=== PATIENT | male | born 1965 | race Caucasian/White ===

== ENCOUNTER 2018-10-05 10:30 | Inpatient (IN) | payer OTHER ==
[~2018-10-05] VITALS: Ht 160 cm; Wt 73.3 kg
[2018-10-30] VITALS (35 sets, daily range): BP systolic 98–128; BP diastolic 59–81; PULSE 60–101; RESP 10–25; Ht 160 cm; Wt 73.3 kg
[2018-10-30] MEDS ORDERED: SOD CHLORIDE 0.9% 1,000 ML IV ONE (06:00)
[2018-10-30] MEDS ORDERED: AMPICILLIN/SULB 3 GM/NS (PMX) 100 ML IVPB SCH (06:00)
--- NOTE | 2018-10-30 07:35 | PREAC ---
Date/Time of Note Date/Time of Note DATE: 10/30/18 TIME: 07:33 Anesthesia Eval and Record Evaluation Time Pre-Procedure Interview DATE: 10/30/18 TIME: 07:33 Age 53 Sex male NPO: 8 hrs Preoperative diagnosis rectal cancer Planned procedure OPEN LOW ANTERIOR RESECTION Past Medical History Past Medical History: Includes Pulm: Smoking Hx (30 PY) Surgery & Anesthesia Issues No known issue Meds Anticoagulation: No Beta Kurtis within 24 hr: No Reason Beta Kurtis not given: Pt. not on B-Kurtis No Active Prescriptions or Reported Meds Current Medications Ampicillin Sodium/ Sulbactam Sodium 100 ml @ 200 mls/hr PRE-OP IVPB ; Start 10/30/18 at 06:00; Stop 10/30/18 at 15:00 Sodium Chloride 1,000 ml @ 75 mls/hr [id number] ONCE IV ; Start 10/30/18 at 06:00; Stop 10/30/18 at 19:19 Meds reviewed: Yes Allergies Coded Allergies: No Known Allergy (Unverified , 10/30/18) Allergies Reviewed: Yes Labs/Studies Labs Reviewed: Reviewed by anesthesiologist test: N/A Pre-procedure Exam Last vitals Vital Signs Date Temp Pulse Resp B/P (MAP) Pulse Ox O2 O2 Flow FiO2 Time Delivery Rate 10/30/18 98.2 67 18 100/64 100 Room Air 07:02 (76) Airway: Adequate mouth opening, Adequate thyromental dist Mallampati: Mallampati II Teeth: Normal Lung: Normal Heart: Normal ASA Physical Status ASA physical status: 2 Emergency: None Planned Anesthetic General/MAC: ETT Planned Pain Management Parenteral pain med Pre-operative Attestations Prior to commencing anesthesia and surgery, the patient was re-evaluated, there was verification of: *The patient's identity *The results of appropriate recent lab work and preoperative vital signs *The above evaluation not changing prior to induction *Anesthetic plan, risk benefits, alternative and complications discussed with patient/family; questions answered; patient/family understands, accepts and wishes to proceed. Lloyd Case M.D. Oct 30, 2018 07:35
[2018-10-30] MEDS ORDERED: ROCURONIUM 50 MG INJ ONE (07:41)
[2018-10-30] MEDS ORDERED: NEOSTIGMINE 3 MG/3 ML SYRINGE ONE (07:41)
[2018-10-30] MEDS ORDERED: PROPOFOL 20 ML ONE (07:41)
[2018-10-30] MEDS ORDERED: GLYCOPYRROLATE 0.4 MG INJ ONE (07:41)
[2018-10-30] MEDS ORDERED: CEFAZOLIN 1 GM INJ ONE (07:41)
[2018-10-30] MEDS ORDERED: ONDANSETRON 4 MG INJ ONE (07:45)
[2018-10-30] MEDS ORDERED: FENTAnyl 50 MCG/ML VIAL ONE (07:45)
[2018-10-30] MEDS ORDERED: DEXAMETHASONE 4 MG/ML 5 ML INJ ONE (07:45)
[2018-10-30] MEDS ORDERED: MIDAZOLAM 1 MG/ML 2 ML INJ ONE (07:45)
[2018-10-30] MEDS ORDERED: HYDROmorphONE 0.5 MG/0.5 ML SYG IV PRN ×2 (08:00)
[2018-10-30] MEDS ORDERED: OXYCODONE/ACETAMINOPHEN (5/325) TAB PO PRN ×2 (08:00)
[2018-10-30] MEDS ORDERED: MIDAZOLAM 1 MG/ML 2 ML INJ IV PRN (08:00)
[2018-10-30] MEDS ORDERED: NALOXONE (0.4 MG/ML) INJ IV PRN ×2 (08:00→13:00)
[2018-10-30] MEDS ORDERED: HYDROmorphONE 1 MG/5 ML IV SYRINGE IV PRN (08:00)
[2018-10-30] MEDS ORDERED: TRIMETHOBENZAMIDE 100 MG/ML VIAL IM PRN ×2 (08:00)
[2018-10-30] MEDS ORDERED: ONDANSETRON 4 MG INJ IV PRN (08:00)
[2018-10-30] MEDS ORDERED: FENTAnyl 50 MCG/ML VIAL IV PRN ×2 (08:00)
[2018-10-30] MEDS ORDERED: DIPHENHYDRAMINE 50 MG INJ IV PRN ×2 (08:00)
[2018-10-30] MEDS ORDERED: EPHEDrine SULFATE 50 MG/5 ML SYG IV PRN (08:00)
[2018-10-30] MEDS ORDERED: ALBUTEROL 0.083% (NEB) 2.5 MG/3 ML AMP HHN PRN (08:00)
[2018-10-30] MEDS ORDERED: IPRATROPIUM (NEB) 0.5 MG/2.5 ML AMP HHN PRN (08:00)
[2018-10-30] MEDS ORDERED: MEPERIDINE 25 MG INJ IV PRN (08:00)
[2018-10-30] MEDS ORDERED: hydrALAzine 20 MG INJ IV PRN (08:00)
[2018-10-30] MEDS ORDERED: NALBUPHINE HCL (10 MG/1 ML) INJ IV PRN (08:00)
[2018-10-30] MEDS ORDERED: LABETALOL HCL 20MG INJ IV PRN (08:00)
[2018-10-30] MEDS ORDERED: ROPIVACAINE 0.2% 20 ML VIAL ONE (08:11)
[2018-10-30] MEDS ORDERED: morphine SULFATE/PF (10 MG/10 ML) INJ ONE (08:11)
[2018-10-30] MEDS ORDERED: PIPER-TAZO 3.375 GM IV (PMX) 100 ML ONE (08:14)
[2018-10-30] MEDS ORDERED: ALBUMIN HUMAN 5% 250 ML ONE (09:08)
[2018-10-30] MEDS ORDERED: SUGAMMADEX SODIUM 200 MG/2 ML VIAL IV ONE (10:21)
[2018-10-30] MEDS: HYDROmorphONE 1 MG/5 ML IV SYRINGE IV PRN ×4 (11:44→12:58)
[2018-10-30] MEDS: FENTAnyl 50 MCG/ML VIAL IV PRN ×2 (12:09→12:18)
--- NOTE | 2018-10-30 12:44 | PAC ---
Date/Time of Note Date/Time of Note DATE: 10/30/18 TIME: 12:44 Post-Anesthesia Notes Post-Anesthesia Note Last documented vital signs Vital Signs Date Temp Pulse Resp B/P (MAP) Pulse Ox O2 O2 Flow FiO2 Time Delivery Rate 10/30/18 77 12 121/76 Room Air 11:59 (91) 10/30/18 96 11:55 10/30/18 98.0 11:07 10/30/18 2.0 10:55 Activity: WNL Respiratory function: WNL Cardiovascular function: WNL Mental status: Baseline Pain reasonably controlled: Yes Hydration appropriate: Yes Nausea/Vomiting absent: Yes Lloyd Case M.D. Oct 30, 2018 12:44
--- NOTE | 2018-10-30 13:25 | QN ---
Documentation Comment seen and examined LISA ENRIQUE MD Oct 30, 2018 13:25
--- NOTE | 2018-10-30 14:15 | HP ---
DATE OF ADMISSION: 10/30/2018 REASON FOR ADMISSION: Low anterior resection with rectal cancer operated by Dr. Banerjee. HISTORY OF PRESENT ILLNESS: This is a 53-year-old male of no past medical history who was diagnosed with rectal cancer followed by Dr. Banerjee as an outpatient. The patient on regular colonoscopy was found to have a rectal cancer which was 4 to 5 cm in diameter. The patient was followed by Dr. Verduzco, Dr. Banerjee and oncologist as an outpatient.Pt underwent neoadjuvant chemotherapy . Today pt is s/p Total proctocolectomy with coloanal anastomosis.2. Mobilization of splenic flexure.3. Diverting ileostomy by Dr Banerjee Currently, the patient is postop surgery and is in lot of pain, noted to have some oozing through the surgical site. and also has NG tube PAST MEDICAL HISTORY: None ALLERGIES: NONE. PAST SURGICAL HISTORY: None. SOCIAL HISTORY: He has a history of smoking. Denies any history of alcohol, any recreational drug use. Currently lives with his . FAMILY HISTORY: Noncontributory. REVIEW OF SYSTEMS: The patient complains of pain in the incision site. Denied any chest pain, any shortness of breath, any nausea, vomiting, hematemesis, any melena. PHYSICAL EXAMINATION: VITAL SIGNS: Currently, blood pressure 99/63, afebrile, heart rate is 76, respirations 17, saturating 97% on 2 liters. GENERAL: The patient is awake, alert; however is in mild to moderate distress secondary to pain. HEENT: The patient has NG tube in place. NECK: Supple. No JVD. HEART: Regular rate, rhythm. LUNGS: Clear to auscultate bilaterally. ABDOMEN: The patient has a ileostomy in place with stoma at the site, also has a vertical incision with mild oozing noted.no bowel sounds EXTREMITIES: No clubbing, cyanosis or edema. ASSESSMENT AND PLAN: . This is a 53-year-old male status 1. Total proctocolectomy with coloanal anastomosis.2. Mobilization of splenic flexure. 3. Diverting ileostomy. POD # 0 2. Postop pain control 3. History of smoking. 4. Rectal cancer.S/P neoadjuvant chemo PLAN: At this period of time, the patient is admitted to med/surg unit. The patient is kept n.p.o., started on IV fluids. The patient is also currently on Unasyn. The patient is on epidural per surgery. GI and DVT prophylaxis. The patient will be followed by surgery. We will continue to follow the patient with you. Rest of the treatment will depend on the patient's hospitalization course. Dictated By: LISA MEYERS/MAYO Conf#: [id number] DID#: [id number] CC: IGNACIO REYNA MD; NASIR BANERJEE MD;*EndCC* MTDD
--- NOTE | 2018-10-30 15:55 | SIPON ---
Date/Time of Note Date/Time of Note DATE: 10/30/18 TIME: 15:54 Operative Report Preoperative Diagnosis Low rectal cancer Postoperative Diagnosis Same Operation/Procedure Performed Low anterior resection and completion proctectomy Surgeon see signature line registrar assistant Dr Tobias Second assist: NELLY CEJA MD Anesthesia: general Estimated blood loss: 200 - 250 ml's Transfusion Required none Specimen Rectosigmoid specimen and additional distal margin Grafts/Implants none Complications none NASIR SÁNCHEZ MD Oct 30, 2018 15:55
[2018-10-30] MEDS: D5W-0.45 NACL + KCL 20 MEQ 1,000 ML IV SCH ×2 (16:52→23:28)
--- NOTE | 2018-10-30 17:52 | OPR ---
DATE OF OPERATION: PREOPERATIVE DIAGNOSIS: Low rectal cancer. POSTOPERATIVE DIAGNOSIS: Low rectal cancer. PROCEDURE: 1. Total proctocolectomy with coloanal anastomosis. 2. Mobilization of splenic flexure. 3. Diverting ileostomy. 4. Rigid sigmoidoscopy. INDICATIONS FOR PROCEDURE: The patient is a 53-year-old man presented with rectal bleeding and under went colonoscopy, found to have a low rectal cancer. He then underwent neoadjuvant chemotherapy, whi ch he recently completed and was referred for definitive surgical resection. DESCRIPTION OF PROCEDURE: The patient was brought to the operating theater and epidural catheter was placed. He was then placed under general anesthesia and placed into the lithotomy position. A Fole y catheter was placed and the abdomen was then shaved, prepped and draped in the usual sterile fashio n. A lower midline incision was made with 15 blade scalpel. Subcutaneous tissue was dissected with cautery down to the anterior rectus sheath. The linea alba was incised, and the abdomen was opened t hroughout the length of the skin incision. The Bookwalter retractor was placed and excellent exposur e was obtained. The left colon was then mobilized by taking down the left white line of Toldt. The distal rectum was inspected and the tumor was palpated. The entire rectal wall was thickened. A eileen table point of transection at the rectosigmoid junction was identified. The bowel was cleared of its mesentery and transected with the KELSEY stapler. A complete mesorectal excision of the rectum then to ok place with combination of cautery and use of the LigaSure device. The tumor appeared to be extend ed very, very low. The suitable point of transection very close to the anorectal junction was identi fied and the bowel was transected with the contour stapler. Intraoperative gross analysis revealed t hat the tumor was extending to the margin. Therefore, the remainder of the rectal stump was dissecte d and the complete extrication of the rectum took place using again the contour stapler. The specime n was sent for pathologic analysis. Preparations were then made for a coloanal anastomosis. The sta ple line of the descending colon was then transected. A #29 EEA anvil was placed into it using the p ursestring device and the bowel was secured around the anvil with the pursestring suture. Dr. Banerjee then went below and dilated the rectum with this dilators and the EEA stapler was inserted and anasto mosis was then created in the standard fashion. Both the proximal and distal donuts appeared intact. The distal donut was sent as the final distal margin. At this point, the abdominal cavity was irri gated. There was no evidence of bleeding. Lap, sponge and instrument counts were correct. A suitab le site for ileostomy placement was identified in the right lower quadrant. A small ellipse of skin was excised and subcutaneous tissue was dissected with cautery down to the anterior rectus sheath. T he sheath was then scored in cruciate fashion as well as the posterior sheath and peritoneum. A suit able portion of the terminal ileum was brought through the ileostomy site. The bowel was then transe cted using a KELSEY stapler. The distal portion was secured to the dermis with a 2-0 Prolene suture and the proximal portion was then brought up further through the ileostomy site. At this point, the abd omen was closed with #1 looped PDS sutures in running fashion. The wound was irrigated with Betadine , and skin was then reapproximated with 5-0 PDS sutures and Dermabond was applied. Attention was then directed to opening the ileostomy. The staple line was transected and the ileosto my was then matured with multiple 3-0 chromic sutures in standard fashion. An ileostomy appliance ba g was applied. The patient tolerated the procedure well. The total blood loss was approximately 250 mL. There were no complications and the patient was then transported in stable condition to the rec overy room. Dictated By: NASIR ABBOTT/MAYO Conf#: [id number] DID#: [id number]
[2018-10-30] MEDS: PIPER-TAZO 3.375 GM IV (PMX) 100 ML IVPB SCH ×2 (18:16→23:28)
[2018-10-30] MEDS: ONDANSETRON 4 MG INJ IV PRN (19:37)
[2018-10-30] MEDS: FENTAnyl 2MCG/ML-ROPIV 0.2% 100 ML BAG EPI SCH (20:16)
[2018-10-31] MEDS: PIPER-TAZO 3.375 GM IV (PMX) 100 ML IVPB SCH ×4 (05:14→23:16)
[2018-10-31] MEDS: FENTAnyl 2MCG/ML-ROPIV 0.2% 100 ML BAG EPI SCH ×3 (05:46→23:52)
[2018-10-31] MEDS: ONDANSETRON 4 MG INJ IV PRN ×2 (06:28→09:40)
[2018-10-31 07:29] VITALS: BP 97/55; PULSE 70; RESP 19
[2018-10-31] MEDS: D5W-0.45 NACL + KCL 20 MEQ 1,000 ML IV SCH ×2 (08:32→18:40)
[2018-10-31] MEDS ORDERED: MAGNESIUM SULFATE 2 GM/50 ML 50 ML IVPB ONE (11:30)
--- NOTE | 2018-10-31 11:54 | PN ---
Date/Time of Note Date/Time of Note DATE: 10/31/18 TIME: 11:50 Assessment/Plan VTE Prophylaxis Risk score (from Ns)>0 risk: 6 SCD applied (from Ns): Yes Pharmacological prophylaxis: NA/contraindicated Pharm contraindication: low risk/ambulating Lines[facility]Catheters [facility] Urinary Cath still in place: Yes Reason Cath still needed: urinary retention Assessment/Plan Hospital Course 53 Y/O with 1. Rectal cancer s/p Total proctocolectomy with coloanal anastomosis. 2. Mobilization of splenic flexure.3. Diverting ileostomy. POD #1 2 Post op pain 3 hx smoking Plan - NPO, iv fluids - cw NG > managed by surgery - Zofran/reglan prn nausea - epidural - fu Surgery recs - GI/DVT prophylaxsis - Replete Mg Result Diagram: 10/31/1843610/31/18436 Results 24hrs Laboratory Tests Test 10/31/18 04:37 White Blood Count 9.5 Red Blood Count 3.51 L Hemoglobin 12.4 L Hematocrit 36.9 L Mean Corpuscular Volume 105.1 H Mean Corpuscular Hemoglobin 35.3 H Mean Corpuscular Hemoglobin Concent 33.6 Red Cell Distribution Width 11.9 Platelet Count 120 L Mean Platelet Volume 10.9 H Immature Granulocytes % 0.400 Neutrophils % 87.8 H Lymphocytes % 5.4 L Monocytes % 6.3 Eosinophils % 0.0 Basophils % 0.1 Nucleated Red Blood Cells % 0.0 Immature Granulocytes # 0.040 H Neutrophils # 8.3 H Lymphocytes # 0.5 L Monocytes # 0.6 Eosinophils # 0.0 Basophils # 0.0 Nucleated Red Blood Cells # 0.0 Sodium Level 137 Potassium Level 5.0 Chloride Level 104 Carbon Dioxide Level 27 Anion Gap 6 Blood Urea Nitrogen 16 Creatinine 0.91 Est Glomerular Filtrat Rate mL/min > 60 Glucose Level 126 Calcium Level 8.1 L Phosphorus Level 2.8 Magnesium Level 1.6 L Total Bilirubin 0.8 Direct Bilirubin 0.00 Indirect Bilirubin 0.8 Aspartate Amino Transf (AST/SGOT) 22 Alanine Aminotransferase (ALT/SGPT) 21 Alkaline Phosphatase 28 L Total Protein 5.6 L Albumin 3.2 L Globulin 2.40 Albumin/Globulin Ratio 1.33 Subjective 24 Hr Interval Summary Free Text/Dictation Pain in abdomen +nausea NG drained 200 ml Exam/Review of Systems Exam Vitals Vital Signs Date Temp Pulse Resp B/P (MAP) Pulse Ox O2 O2 Flow FiO2 Time Delivery Rate 10/31/18 98.2 70 19 97/55 (69) 96 07:29 10/30/18 Nasal 2.0 16:30 Cannula Intake and Output 10/30/18 10/30/18 10/31/18 1515:00 23:00 07:00 IntakeIntake Total 2500 ml 550 ml 1550 ml OutputOutput Total 100 ml 600 ml 1400 ml BalanceBalance 2400 ml -50 ml 150 ml Exam GENERAL: The patient is awake, alert; however is in mild to moderate distress secondary to pain. HEENT: The patient has NG tube in place. NECK: Supple. No JVD. HEART: Regular rate, rhythm. LUNGS: Clear to auscultate bilaterally. ABDOMEN: The patient has a ileostomy in place with stoma at the site, also has a vertical incision with mild oozing notd covered with dressing, TTP EXTREMITIES: No clubbing, cyanosis or edema. Results Results 24hrs Laboratory Tests Test 10/31/18 04:37 White Blood Count 9.5 Red Blood Count 3.51 L Hemoglobin 12.4 L Hematocrit 36.9 L Mean Corpuscular Volume 105.1 H Mean Corpuscular Hemoglobin 35.3 H Mean Corpuscular Hemoglobin Concent 33.6 Red Cell Distribution Width 11.9 Platelet Count 120 L Mean Platelet Volume 10.9 H Immature Granulocytes % 0.400 Neutrophils % 87.8 H Lymphocytes % 5.4 L Monocytes % 6.3 Eosinophils % 0.0 Basophils % 0.1 Nucleated Red Blood Cells % 0.0 Immature Granulocytes # 0.040 H Neutrophils # 8.3 H Lymphocytes # 0.5 L Monocytes # 0.6 Eosinophils # 0.0 Basophils # 0.0 Nucleated Red Blood Cells # 0.0 Sodium Level 137 Potassium Level 5.0 Chloride Level 104 Carbon Dioxide Level 27 Anion Gap 6 Blood Urea Nitrogen 16 Creatinine 0.91 Est Glomerular Filtrat Rate mL/min > 60 Glucose Level 126 Calcium Level 8.1 L Phosphorus Level 2.8 Magnesium Level 1.6 L Total Bilirubin 0.8 Direct Bilirubin 0.00 Indirect Bilirubin 0.8 Aspartate Amino Transf (AST/SGOT) 22 Alanine Aminotransferase (ALT/SGPT) 21 Alkaline Phosphatase 28 L Total Protein 5.6 L Albumin 3.2 L Globulin 2.40 Albumin/Globulin Ratio 1.33 Medications Medication Current Medications Miscellaneous Information (* Miscellaneous Pharmacy Order) DURAMORPH: 3 MG EPIDU... GIVEN NEURAXIAL XX ; Start 10/30/18 at 08:00 Fentanyl/ Ropivacaine 100 ml CONT EPIDURAL EPI Last administered on 10/31/18at 05:46; Admin Dose 100 ML; Start 10/30/18 at 08:00; Stop 11/03/18 at 08:00 Naloxone HCl (Narcan) 0.2 mg Q2M PRN IV .RESP RATE; Start 10/30/18 at 13:00 Potassium Chloride/Dextrose/ Sod Cl 1,000 ml @ 125 mls/hr Q8H IV Last administered on 10/31/18at 08:32; Admin Dose 125 MLS/HR; Start 10/30/18 at 16:00 Piperacillin Sod/ Tazobactam Sod 100 ml @ 200 mls/hr Q6 IVPB Last administered on 10/31/18at 05:14; Admin Dose 200 MLS/HR; Start 10/30/18 at 18:00 Ondansetron HCl (Zofran Inj) 4 mg Q4H PRN IV NAUSEA AND/OR VOMITING Last administered on 10/31/18at 09:40; Admin Dose 4 MG; Start 10/31/18 at 09:30 Magnesium Sulfate 50 ml @ 25 mls/hr ONCE ONCE IVPB ; Start 10/31/18 at 11:30; Stop 10/31/18 at 13:29 LISA ENRIQUE MD Oct 31, 2018 11:54
[2018-10-31 12:00] VITALS: BP 100/64; PULSE 73; RESP 20
[2018-10-31] MEDS: CEPASTAT LOZENGE MT PRN (13:12)
[2018-10-31] MEDS: HYDROmorphONE 0.5 MG/0.5 ML SYG IV PRN (13:12)
[2018-10-31 14:20] VITALS: BP 101/62; PULSE 82; RESP 18
--- NOTE | 2018-10-31 15:52 | PN ---
DATE: 10/31/2018 Postop day #1 status post proctocolectomy and coloanal anastomosis. Diverting ileostomy. SUBJECTIVE: The patient has been complaining of too much nausea and actually vomited once at least t dave while the patient has NG tube in place and also the pain which is supposed to be controlled by e pidural has not been controlled enough, so I was asked to see the patient. OBJECTIVE: GENERAL: Awake, alert. VITAL SIGNS: Temperature 98.2, heart rate 72, respirations 19, blood pressure 97/55. HEAD AND NECK: Normal. NG tube is not functioning properly. I had to pull it out about 25 cm and t hen started functioning and a lot of gas and secretions was evacuated immediately. CHEST: Symmetrical expansion. HEART: Regular. LUNGS: Decreased breathing sound at bases. ABDOMEN: Before fixing the NG tube, epigastric area was quite distended. After that, the distention much decreased. Dressing is intact. Ileostomy bag is in place. Not much drainage. Bowel sounds h ypoactive. Sung catheter is in place. Lower extremity SCD in place. LABORATORY DATA: WBC 9500 with 87% segmented, hemoglobin 12.4, hematocrit 36.9, platelet count 120. Chemistry: Sodium, potassium, BUN, creatinine within normal limits. Magnesium 1.6. The medical se eugene is taking care of this matter. I's and O's: NG tube has drained about 300 mL from time of oper ation yesterday. Since 7 o'clock today morning. Sung catheter drained 1700 mL of urine. ASSESSMENT AND PLAN: This is a 53-year-old gentleman who has had cancer of the rectum, received neoa djuvant plus radiation. Yesterday he underwent proctocolectomy and anastomosis of the colon to anal canal. On a protective diet and diverting ileostomy. So far, patient is stable as was mentioned, th ere was problem with nausea and vomiting and excess pain in the epigastric area which appears to be d ue to malfunctioning NG tube which was adjusted by myself and the patient is feeling better now. PLAN: We will continue current care. Patient is receiving epidural for pain management and also we added for breakthrough pain, Dilaudid 0.5 mg IV q. 3 hours. Continue NG tube. Continue Sung cathet er. Continue epidural. We will follow along with other medical colleagues. Dictated By: LANCE MUNOZ MD PS/NTS Conf#: [id number] DID#: [id number] CC: NASIR SÁNCHEZ MD;*EndCC*
[2018-10-31 20:10] VITALS: BP 119/71; PULSE 95; RESP 18
[2018-11-01] MEDS ORDERED: LORAZEPAM 2 MG INJ IV ONE (00:30)
[2018-11-01 02:00] VITALS: BP 136/78; PULSE 84; RESP 18
[2018-11-01] MEDS: D5W-0.45 NACL + KCL 20 MEQ 1,000 ML IV SCH ×3 (03:59→12:39)
[2018-11-01] MEDS: PIPER-TAZO 3.375 GM IV (PMX) 100 ML IVPB SCH ×3 (06:22→17:08)
[2018-11-01 07:40] VITALS: BP 134/69; PULSE 91; RESP 19
[2018-11-01] MEDS: FENTAnyl 2MCG/ML-ROPIV 0.2% 100 ML BAG EPI SCH ×2 (08:39→17:08)
[2018-11-01] MEDS: HYDROmorphONE 0.5 MG/0.5 ML SYG IV PRN ×2 (08:49→21:48)
--- NOTE | 2018-11-01 12:48 | PN ---
Date/Time of Note Date/Time of Note DATE: 11/01/18 TIME: 12:44 Assessment/Plan VTE Prophylaxis Risk score (from Ns)>0 risk: 2 SCD applied (from Ns): Yes Pharmacological prophylaxis: NA/contraindicated Pharm contraindication: low risk/ambulating Lines/Catheters IV Catheter Type (from Nrsg): Peripheral IV Urinary Cath still in place: Yes Reason Cath still needed: urinary retention Assessment/Plan Hospital Course 53 Y/O with 1. Rectal cancer s/p Total proctocolectomy with coloanal anastomosis. 2. Mobilization of splenic flexure.3. Diverting ileostomy. POD #2 2 Post op pain 3 hx smoking Plan - ice chips per surgery - cw NG > managed by surgery - Zofran/reglan prn nausea - epidural/dilaudid prn pain - iv fluids with KCL at 125 cc/hr - fu Surgery recs - GI/DVT prophylaxsis - Replete Phos Result Diagram: 11/01/187 11/01/187 Results 24hrs Laboratory Tests Test 11/01/18 04:47 White Blood Count 8.6 Red Blood Count 3.57 L Hemoglobin 12.5 L Hematocrit 36.6 L Mean Corpuscular Volume 102.5 H Mean Corpuscular Hemoglobin 35.0 H Mean Corpuscular Hemoglobin Concent 34.2 Red Cell Distribution Width 11.9 Platelet Count 115 L Mean Platelet Volume 10.6 H Immature Granulocytes % 0.700 H Neutrophils % 87.5 H Lymphocytes % 6.0 L Monocytes % 5.7 Eosinophils % 0.0 Basophils % 0.1 Nucleated Red Blood Cells % 0.0 Immature Granulocytes # 0.060 H Neutrophils # 7.5 Lymphocytes # 0.5 L Monocytes # 0.5 Eosinophils # 0.0 Basophils # 0.0 Nucleated Red Blood Cells # 0.0 Sodium Level 138 Potassium Level 4.0 Chloride Level 108 Carbon Dioxide Level 25 Anion Gap 5 Blood Urea Nitrogen 10 Creatinine 0.77 Est Glomerular Filtrat Rate mL/min > 60 Glucose Level 127 Calcium Level 8.4 Phosphorus Level 1.6 #L Magnesium Level 2.3 Subjective 24 Hr Interval Summary Free Text/Dictation abdominal distension NG drainage Exam/Review of Systems Exam Vitals Vital Signs Date Temp Pulse Resp B/P (MAP) Pulse Ox O2 O2 Flow FiO2 Time Delivery Rate 11/01/18 98.9 91 19 134/69 95 07:40 (90) 10/31/18 Room Air 12:00 10/30/18 2.0 16:30 Intake and Output 10/31/18 10/31/18 11/01/18 1515:00 23:00 07:00 IntakeIntake Total 350 ml 1100 ml 1325 ml OutputOutput Total 600 ml 2500 ml BalanceBalance 350 ml 500 ml -1175 ml Exam Exam GENERAL: The patient is awake, alert; however is in mild to moderate distress secondary to pain. HEENT: The patient has NG tube in place. NECK: Supple. No JVD. HEART: Regular rate, rhythm. LUNGS: Clear to auscultate bilaterally. ABDOMEN: The patient has a ileostomy in place with stoma at the site, also has a vertical incision with mild oozing notd covered with dressing, TTP EXTREMITIES: No clubbing, cyanosis or edema. Results Results 24hrs Laboratory Tests Test 11/01/18 04:47 White Blood Count 8.6 Red Blood Count 3.57 L Hemoglobin 12.5 L Hematocrit 36.6 L Mean Corpuscular Volume 102.5 H Mean Corpuscular Hemoglobin 35.0 H Mean Corpuscular Hemoglobin Concent 34.2 Red Cell Distribution Width 11.9 Platelet Count 115 L Mean Platelet Volume 10.6 H Immature Granulocytes % 0.700 H Neutrophils % 87.5 H Lymphocytes % 6.0 L Monocytes % 5.7 Eosinophils % 0.0 Basophils % 0.1 Nucleated Red Blood Cells % 0.0 Immature Granulocytes # 0.060 H Neutrophils # 7.5 Lymphocytes # 0.5 L Monocytes # 0.5 Eosinophils # 0.0 Basophils # 0.0 Nucleated Red Blood Cells # 0.0 Sodium Level 138 Potassium Level 4.0 Chloride Level 108 Carbon Dioxide Level 25 Anion Gap 5 Blood Urea Nitrogen 10 Creatinine 0.77 Est Glomerular Filtrat Rate mL/min > 60 Glucose Level 127 Calcium Level 8.4 Phosphorus Level 1.6 #L Magnesium Level 2.3 Medications Medication Current Medications Miscellaneous Information (* Miscellaneous Pharmacy Order) DURAMORPH: 3 MG EPIDU... GIVEN NEURAXIAL XX ; Start 10/30/18 at 08:00 Fentanyl/ Ropivacaine 100 ml CONT EPIDURAL EPI Last administered on 11/01/18at 08:39; Admin Dose 100 ML; Start 10/30/18 at 08:00; Stop 11/03/18 at 08:00 Naloxone HCl (Narcan) 0.2 mg Q2M PRN IV .RESP RATE; Start 10/30/18 at 13:00 Potassium Chloride/Dextrose/ Sod Cl 1,000 ml @ 125 mls/hr Q8H IV Last administered on 11/01/18 12:39; Admin Dose 125 MLS/HR; Start 10/30/18 at 16:00 Piperacillin Sod/ Tazobactam Sod 100 ml @ 200 mls/hr Q6 IVPB Last administered on 11/01/18 12:39; Admin Dose 200 MLS/HR; Start 10/30/18 at 18:00 Ondansetron HCl (Zofran Inj) 4 mg Q4H PRN IV NAUSEA AND/OR VOMITING Last administered on 10/31/18at 09:40; Admin Dose 4 MG; Start 10/31/18 at 09:30 Metoclopramide HCl (Reglan) 10 mg Q6 PRN IV NAUSEA; Start 10/31/18 at 12:00 Hydromorphone HCl (Dilaudid) 0.5 mg Q3H PRN IV SEVERE PAIN LEVEL 7-10 Last admi nistered on 11/01/18at 08:49; Admin Dose 0.5 MG; Start 10/31/18 at 13:00 Phenol (Cepastat Lozenge) 1 lozenge Q1H PRN MT SORE THROAT Last administered on 10/31/18at 13:12; Admin Dose 1 LOZENGE; Start 10/31/18 at 13:00 Sodium Phosphate 20 meq/Sodium Chloride 255 ml @ 63.75 mls/ hr ONCE ONCE IVPB ; Start 11/01/18 at 13:00; Stop 11/01/18 at 16:59 LISA ENRIQUE MD Nov 01, 2018 12:48
[2018-11-01] MEDS ORDERED: SODIUM PHOSPHATE 20 MEQ in SOD CHLORIDE 0.9% 250 ML IVPB ONE (13:00)
[2018-11-01 14:00] VITALS: BP 131/77; PULSE 91; RESP 18
[2018-11-01] MEDS: ONDANSETRON 4 MG INJ IV PRN ×2 (15:22→21:46)
--- NOTE | 2018-11-01 16:55 | PN ---
DATE: 11/01/2018 Postop day #2 status post laparotomy very low anterior resection and coloanal anastomosis with placement of diverting ileostomy for protection of the anastomosis. SUBJECTIVE: He wishes the NG tube to be removed. Otherwise, no other complaint. OBJECTIVE: GENERAL: Awake, alert and oriented. VITAL SIGNS: Temperature maximum 98.9, heart rate 91, respiration 19, blood pressure 124/69, saturation 95% room air. I and O urine 2500 in past 24 hours. NG tube draining 600 mL in past 24 hours. LABORATORY DATA: WBC 8600 with 87% segmented. Hemoglobin 12.5, hematocrit 36.6, stable. PHYSICAL EXAMINATION: HEART: Regular. LUNGS: Clear. ABDOMEN: Soft. Ileostomy actually slightly has started functioning, but the bowel sounds is not normal, so I assume this is drainage due to the pressure of the distended bowels that has squeezed some content through ileostomy, await for real function of the ileostomy then we will consider removal of the NG tube and probably starting the patient on clear liquids expecting maybe in the next 2 days. Meanwhile, the patient has a Sung catheter and will keep it. Epidural is running. An NG tube is in place. Continue current care. Dictated By: LANCE MUNOZ MD PS/NTS Conf#: [id number] DID#: [id number] CC: NASIR SÁNCHEZ MD;*EndCC* MTDD
[2018-11-01 20:30] VITALS: BP 129/73; PULSE 88; RESP 18
[2018-11-01] MEDS ORDERED: LORAZEPAM 2 MG INJ IV PRN (21:30)
[2018-11-02] MEDS: D5W-0.45 NACL + KCL 20 MEQ 1,000 ML IV SCH ×4 (00:54→23:53)
[2018-11-02] MEDS: PIPER-TAZO 3.375 GM IV (PMX) 100 ML IVPB SCH ×5 (00:55→23:53)
[2018-11-02 01:40] VITALS: BP 128/81; PULSE 83; RESP 19
[2018-11-02] MEDS: FENTAnyl 2MCG/ML-ROPIV 0.2% 100 ML BAG EPI SCH (01:48)
[2018-11-02 08:24] VITALS: BP 128/72; PULSE 81; RESP 18
[2018-11-02] MEDS ORDERED: POTASSIUM PHOSPHATE 40 MEQ in SOD CHLORIDE 0.9% 250 ML IVPB ONE (11:00)
--- NOTE | 2018-11-02 13:45 | PN ---
Date/Time of Note Date/Time of Note DATE: 11/02/18 TIME: 13:42 Assessment/Plan VTE Prophylaxis Risk score (from Ns)>0 risk: 7 SCD applied (from Ns): Yes Pharmacological prophylaxis: NA/contraindicated Pharm contraindication: low risk/ambulating Lines/Catheters IV Catheter Type (from Nrsg): Peripheral IV Urinary Cath still in place: Yes Reason Cath still needed: urinary retention Assessment/Plan Hospital Course 53 Y/O with 1. Rectal cancer s/p Total proctocolectomy with coloanal anastomosis. 2. Mobilization of splenic flexure.3. Diverting ileostomy. POD #3 2 Post op pain 3 hx smoking 4 Rectal cancer Plan - ice chips per surgery - cw NG > managed by surgery - Zofran/reglan prn nausea - dilaudid prn pain - iv fluids with KCL at 125 cc/hr -Replete potassium [place] - fu Surgery recs -? Sung to be taken out -PT EVAL if ok surgery if if epidural is out - GI/DVT prophylaxsis Result Diagram: 11/02/18 0453 11/02/18 0445 Results 24hrs Laboratory Tests Test 11/02/18 04:45 11/02/18 04:53 Sodium Level 139 Potassium Level 3.7 Chloride Level 109 Carbon Dioxide Level 24 Anion Gap 6 Blood Urea Nitrogen 13 Creatinine 0.72 Est Glomerular Filtrat Rate mL/min > 60 Glucose Level 114 Calcium Level 8.5 White Blood Count 8.9 Red Blood Count 3.78 L Hemoglobin 13.1 L Hematocrit 38.4 L Mean Corpuscular Volume 101.6 H Mean Corpuscular Hemoglobin 34.7 H Mean Corpuscular Hemoglobin Concent 34.1 Red Cell Distribution Width 11.9 Platelet Count 132 L Mean Platelet Volume 10.7 H Immature Granulocytes % 0.700 H Neutrophils % 88.3 H Lymphocytes % 4.7 L Monocytes % 6.1 Eosinophils % 0.0 Basophils % 0.2 Nucleated Red Blood Cells % 0.0 Immature Granulocytes # 0.060 H Neutrophils # 7.8 H Lymphocytes # 0.4 L Monocytes # 0.5 Eosinophils # 0.0 Basophils # 0.0 Nucleated Red Blood Cells # 0.0 Phosphorus Level 2.3 L Magnesium Level 2.2 Subjective 24 Hr Interval Summary Free Text/Dictation Feels that the pain is better controlled. ng Still draining epiDural was taken out this morning Exam/Review of Systems Exam Vitals Vital Signs Date Temp Pulse Resp B/P (MAP) Pulse Ox O2 O2 Flow FiO2 Time Delivery Rate 11/02/18 20 09:00 11/02/18 98.6 81 128/72 95 Room Air 08:24 (90) 10/30/18 2.0 16:30 Intake and Output 11/01/18 11/01/18 11/02/18 1515:00 23:00 07:00 IntakeIntake Total 975 ml 855 ml 1200 ml OutputOutput Total 2100 ml 700 ml BalanceBalance 975 ml -1245 ml 500 ml Exam Exam GENERAL: The patient is awake, alert; however is in mild to moderate distress secondary to pain. HEENT: The patient has NG tube in place. NECK: Supple. No JVD. HEART: Regular rate, rhythm. LUNGS: Clear to auscultate bilaterally. ABDOMEN: The patient has a ileostomy in place with stoma at the site, also has a vertical incision with mild oozing notd covered with dressing, TTP the ostomy is draining EXTREMITIES: No clubbing, cyanosis or edema. Results Results 24hrs Laboratory Tests Test 11/02/18 04:45 11/02/18 04:53 Sodium Level 139 Potassium Level 3.7 Chloride Level 109 Carbon Dioxide Level 24 Anion Gap 6 Blood Urea Nitrogen 13 Creatinine 0.72 Est Glomerular Filtrat Rate mL/min > 60 Glucose Level 114 Calcium Level 8.5 White Blood Count 8.9 Red Blood Count 3.78 L Hemoglobin 13.1 L Hematocrit 38.4 L Mean Corpuscular Volume 101.6 H Mean Corpuscular Hemoglobin 34.7 H Mean Corpuscular Hemoglobin Concent 34.1 Red Cell Distribution Width 11.9 Platelet Count 132 L Mean Platelet Volume 10.7 H Immature Granulocytes % 0.700 H Neutrophils % 88.3 H Lymphocytes % 4.7 L Monocytes % 6.1 Eosinophils % 0.0 Basophils % 0.2 Nucleated Red Blood Cells % 0.0 Immature Granulocytes # 0.060 H Neutrophils # 7.8 H Lymphocytes # 0.4 L Monocytes # 0.5 Eosinophils # 0.0 Basophils # 0.0 Nucleated Red Blood Cells # 0.0 Phosphorus Level 2.3 L Magnesium Level 2.2 Medications Medication Current Medications Miscellaneous Information (* Miscellaneous Pharmacy Order) DURAMORPH: 3 MG EPIDU... GIVEN NEURAXIAL XX ; Start 10/30/18 at 08:00 Fentanyl/ Ropivacaine 100 ml CONT EPIDURAL EPI Last administered on 11/02/18 01:48; Admin Dose 100 ML; Start 10/30/18 at 08:00; Stop 11/03/18 at 08:00 Naloxone HCl (Narcan) 0.2 mg Q2M PRN IV .RESP RATE; Start 10/30/18 at 13:00 Potassium Chloride/Dextrose/ Sod Cl 1,000 ml @ 125 mls/hr Q8H IV Last administered on 11/02/18 11:05; Admin Dose 125 MLS/HR; Start 10/30/18 at 16:00 Piperacillin Sod/ Tazobactam Sod 100 ml @ 200 mls/hr Q6 IVPB Last administered on 11/02/18at 12:53; Admin Dose 200 MLS/HR; Start 10/30/18 at 18:00 Ondansetron HCl (Zofran Inj) 4 mg Q4H PRN IV NAUSEA AND/OR VOMITING Last administered on 11/01/18 21:46; Admin Dose 4 MG; Start 10/31/18 at 09:30 Metoclopramide HCl (Reglan) 10 mg Q6 PRN IV NAUSEA; Start 10/31/18 at 12:00 Hydromorphone HCl (Dilaudid) 0.5 mg Q3H PRN IV SEVERE PAIN LEVEL 7-10 Last administered on 11/01/18 21:48; Admin Dose 0.5 MG; Start 10/31/18 at 13:00 Phenol (Cepastat Lozenge) 1 lozenge Q1H PRN MT SORE THROAT Last administered on 10/31/18at 13:12; Admin Dose 1 LOZENGE; Start 10/31/18 at 13:00 Lorazepam (Ativan) 1 mg BID PRN IV ANXIETY Last administered on 11/02/18 11:05; Admin Dose 1 MG; Start 11/01/18 at 21:30 Potassium Phosphate 40 meq/ Sodium Chloride 259.0909 ml @ 64.773 m... ONCE ONCE IVPB Last administered on 11/02/18 11:05; Admin Dose 64.773 MLS/HR; Start 11/02/18 at 11:00; Stop 11/02/18 at 14:59 LISA ENRIQUE MD Nov 02, 2018 13:45
[2018-11-02] MEDS ORDERED: CEPASTAT LOZENGE MT PRN (14:30)
[2018-11-02 15:03] VITALS: BP 128/86; PULSE 79; RESP 18
[2018-11-02] MEDS: CEPASTAT LOZENGE MT PRN ×3 (16:15→20:41)
--- NOTE | 2018-11-02 18:23 | PN ---
DATE: 11/02/2018 Postop day #3 status post very low anterior resection of the cancer of the rectum and coloanal anastomosis and placement of diverting ileostomy. SUBJECTIVE: The patient does not like the NG tube and he claims that the NG tube is bothering his throat. OBJECTIVE: GENERAL: Awake, alert, sitting in the bed. VITAL SIGNS: Temperature maximum today is 98.6, heart rate 81, respirations 18, blood pressure 128/72, saturation 95% on room air. ABDOMEN: Slightly distended. Tympanic. Bowel sounds hypoactive. EXTREMITIES: Legs no calf tenderness. Sung catheter in place. Epidural has been disconnected. LABORATORY DATA: WBC 8900 with 88% segmented. Hemoglobin 13.1, hematocrit 38.4. Chemistry: Sodium, potassium, BUN and creatinine within normal limits. INTAKE AND OUTPUT: Urine output for the past 24 hours 2500 mL through the Sung catheter. The NG tube has drained 300 mL in the past 24 hours greenish fluid. In the ileostomy bag, there is about 50 mL of light greenish fluid in the bag. ASSESSMENT: A 53-year-old gentleman with cancer of the rectum who had a low anterior resection and coloanal anastomosis with protection ileostomy postop day #3. The patient has passed a slight amount of greenish fluid per ileostomy, but the abdomen is distended. Bowel sounds hypoactive. The nurses report that somehow the epidural catheter has been dislodged from place and has come out. In any case, we do not have epidural at this time, but the patient is not requesting any pain medication. PLAN: Keep the NG tube in place, keep Sung catheter in place. Get the patient out of bed and ambulate with the help of physical therapy. Adjust the electrolytes. From surgical point of view, we will round the patient every day. Medical problems and electrolyte imbalance per the internal medicine coverage. Dictated By: LANCE MUNOZ MD PS/NTS Conf#: [id number] DID#: [id number] CC: NASIR SÁNCHEZ MD;*EndCC* MTDD
[2018-11-02 19:55] VITALS: BP 125/83; PULSE 63; RESP 18
[2018-11-03] MEDS: ONDANSETRON 4 MG INJ IV PRN (00:48)
[2018-11-03] MEDS: HYDROmorphONE 0.5 MG/0.5 ML SYG IV PRN (00:48)
[2018-11-03] MEDS: PIPER-TAZO 3.375 GM IV (PMX) 100 ML IVPB SCH ×3 (05:45→17:15)
[2018-11-03 08:27] VITALS: BP 121/75; PULSE 74; RESP 18
[2018-11-03] MEDS: D5W-0.45 NACL + KCL 20 MEQ 1,000 ML IV SCH ×3 (10:39→21:57)
[2018-11-03 14:38] VITALS: BP 131/77; PULSE 76; RESP 18
--- NOTE | 2018-11-03 15:10 | PN ---
Date/Time of Note Date/Time of Note DATE: 11/03/18 TIME: 15:07 Assessment/Plan VTE Prophylaxis Risk score (from Ns)>0 risk: 5 SCD applied (from Ns): Yes Pharmacological prophylaxis: NA/contraindicated Pharm contraindication: low risk/ambulating Lines/Catheters IV Catheter Type (from Nrsg): Peripheral IV Urinary Cath still in place: Yes Reason Cath still needed: urinary retention Assessment/Plan Hospital Course 53 Y/O with 1. Rectal cancer s/p Total proctocolectomy with coloanal anastomosis. 2. Mobilization of splenic flexure.3. Diverting ileostomy. POD #4 2 Post op pain 3 hx smoking 4 Rectal cancer Plan - ice chips per surgery> advance diet per surgery - Zofran/reglan prn nausea - dilaudid prn pain - iv fluids with KCL at 100 cc/hr - fu Surgery recs -? Sung to be taken out per surgery -Fu PT recs Result Diagram: 11/03/18 0440 11/03/18 0440 Results 24hrs Laboratory Tests Test 11/03/18 04:40 White Blood Count 6.5 # Red Blood Count 3.65 L Hemoglobin 12.6 L Hematocrit 37.3 L Mean Corpuscular Volume 102.2 H Mean Corpuscular Hemoglobin 34.5 H Mean Corpuscular Hemoglobin Concent 33.8 Red Cell Distribution Width 11.9 Platelet Count 149 Mean Platelet Volume 10.8 H Immature Granulocytes % 0.500 H Neutrophils % 83.4 H Lymphocytes % 8.4 L Monocytes % 7.2 Eosinophils % 0.2 Basophils % 0.3 Nucleated Red Blood Cells % 0.0 Immature Granulocytes # 0.030 Neutrophils # 5.4 Lymphocytes # 0.6 L Monocytes # 0.5 Eosinophils # 0.0 Basophils # 0.0 Nucleated Red Blood Cells # 0.0 Sodium Level 139 Potassium Level 3.9 Chloride Level 108 Carbon Dioxide Level 25 Anion Gap 6 Blood Urea Nitrogen 20 Creatinine 0.70 Est Glomerular Filtrat Rate mL/min > 60 Glucose Level 122 Calcium Level 8.2 L Phosphorus Level 2.9 Magnesium Level 2.3 Subjective 24 Hr Interval Summary Free Text/Dictation Feels a lot better today. PAIN is much improved NG was removed. Patient is walking with physical therapy Exam/Review of Systems Exam Vitals Vital Signs Date Temp Pulse Resp B/P (MAP) Pulse Ox O2 O2 Flow FiO2 Time Delivery Rate 11/03/18 98.0 76 18 131/77 92 Room Air 14:38 (95) 10/30/18 2.0 16:30 Intake and Output 11/02/18 11/02/18 11/03/18 1515:00 23:00 07:00 IntakeIntake Total 600 ml 100 ml 1725 ml OutputOutput Total 500 ml 1600 ml 700 ml BalanceBalance 100 ml -1500 ml 1025 ml Exam GENERAL: Awake alert oriented HEENT: Awake alert oriented NECK: Supple. No JVD. HEART: Regular rate, rhythm. LUNGS: Clear to auscultate bilaterally. ABDOMEN: The patient has a ileostomy in place with stoma at the site, hypoactive bowel sounds, ileostomy draining EXTREMITIES: No clubbing, cyanosis or edema. Results Results 24hrs Laboratory Tests Test 11/03/18 04:40 White Blood Count 6.5 # Red Blood Count 3.65 L Hemoglobin 12.6 L Hematocrit 37.3 L Mean Corpuscular Volume 102.2 H Mean Corpuscular Hemoglobin 34.5 H Mean Corpuscular Hemoglobin Concent 33.8 Red Cell Distribution Width 11.9 Platelet Count 149 Mean Platelet Volume 10.8 H Immature Granulocytes % 0.500 H Neutrophils % 83.4 H Lymphocytes % 8.4 L Monocytes % 7.2 Eosinophils % 0.2 Basophils % 0.3 Nucleated Red Blood Cells % 0.0 Immature Granulocytes # 0.030 Neutrophils # 5.4 Lymphocytes # 0.6 L Monocytes # 0.5 Eosinophils # 0.0 Basophils # 0.0 Nucleated Red Blood Cells # 0.0 Sodium Level 139 Potassium Level 3.9 Chloride Level 108 Carbon Dioxide Level 25 Anion Gap 6 Blood Urea Nitrogen 20 Creatinine 0.70 Est Glomerular Filtrat Rate mL/min > 60 Glucose Level 122 Calcium Level 8.2 L Phosphorus Level 2.9 Magnesium Level 2.3 Medications Medication Current Medications Miscellaneous Information (* Miscellaneous Pharmacy Order) DURAMORPH: 3 MG EPIDU... GIVEN NEURAXIAL XX ; Start 10/30/18 at 08:00 Naloxone HCl (Narcan) 0.2 mg Q2M PRN IV .RESP RATE; Start 10/30/18 at 13:00 Potassium Chloride/Dextrose/ Sod Cl 1,000 ml @ 125 mls/hr Q8H IV Last administered on 11/03/18at 10:39; Admin Dose 125 MLS/HR; Start 10/30/18 at 16:00 Piperacillin Sod/ Tazobactam Sod 100 ml @ 200 mls/hr Q6 IVPB Last administered on 11/03/18 12:10; Admin Dose 200 MLS/HR; Start 10/30/18 at 18:00 Ondansetron HCl (Zofran Inj) 4 mg Q4H PRN IV NAUSEA AND/OR VOMITING Last administered on 11/03/18 00:48; Admin Dose 4 MG; Start 10/31/18 at 09:30 Metoclopramide HCl (Reglan) 10 mg Q6 PRN IV NAUSEA; Start 10/31/18 at 12:00 Hydromorphone HCl (Dilaudid) 0.5 mg Q3H PRN IV SEVERE PAIN LEVEL 7-10 Last ad ministered on 11/03/18 00:48; Admin Dose 0.5 MG; Start 10/31/18 at 13:00 Phenol (Cepastat Lozenge) 1 lozenge Q1H PRN MT SORE THROAT Last administered on 11/02/18at 20:41; Admin Dose 1 LOZENGE; Start 10/31/18 at 13:00 Lorazepam (Ativan) 1 mg BID PRN IV ANXIETY Last administered on 11/02/18 11:05; Admin Dose 1 MG; Start 11/01/18 at 21:30 Phenol (Cepastat Lozenge) 1 lozenge Q1H PRN MT PAIN; Start 11/02/18 at 14:30 LISA ENRIQUE MD Nov 03, 2018 15:10
--- NOTE | 2018-11-03 18:41 | PN ---
DATE: 11/03/2018 Postop day #4 status post laparotomy, very low anterior resection of the cancer of the rectum, coloanal anastomosis and placement of a diverting ileostomy. SUBJECTIVE: He still continues to complain of NG tube. The ileostomy has been functioning. OBJECTIVE: GENERAL: Awake, alert, oriented x3. The patient is sitting on the chair at bedside. VITAL SIGNS: Temperature maximum today so far 98.2, heart rate 74, respirations 18, blood pressure 121/75, saturation 94% on room air. I and O: NG tube past 24 hours 300 mL drainage. Urine output is 1100. Ileostomy: They have not documented, but when I examined the patient, at least there was 200 mL in the bag. HEART: Clinically regular. LUNGS: Clear. ABDOMEN: Less distended. Bowel sounds are about 3+/4+. EXTREMITIES: Lower extremities: No calf tenderness. No pitting edema. ASSESSMENT AND PLAN: Postop day #4 status post cancer of the rectum resection anteriorly and anastomosis. The patient's ileostomy has started functioning; therefore, we are going to remove the NG tube today. The epidural was removed yesterday. The patient has been out of bed, walks around and ambulated. We will keep Sung catheter in place till make sure that activity is complete and leave some time for the bladder nerves to regain their function. Overall, the patient's recovery is satisfactory so far. Dictated By: LANCE GENTILE/MAYO Conf#: [id number] DID#: [id number] MTDD
[2018-11-03 19:45] VITALS: BP 119/75; PULSE 81; RESP 18
[2018-11-04] MEDS: PIPER-TAZO 3.375 GM IV (PMX) 100 ML IVPB SCH ×4 (00:04→18:17)
[2018-11-04 02:03] VITALS: BP 135/79; PULSE 72; RESP 18
[2018-11-04] MEDS: METOCLOPRAMIDE 10 MG INJ IV PRN ×3 (02:05→18:05)
[2018-11-04] MEDS: D5W-0.45 NACL + KCL 20 MEQ 1,000 ML IV SCH ×2 (06:32→16:43)
[2018-11-04 07:24] VITALS: BP 121/76; PULSE 67; RESP 17
--- NOTE | 2018-11-04 13:08 | PN ---
DATE: 11/04/2018 SUBJECTIVE: No specific complaint. OBJECTIVE: GENERAL: Awake, alert, oriented. VITAL SIGNS: Temperature maximum today 98.7, heart rate 72, respiration 18, blood pressure 121/76, s aturation 94% to 100% room air. LABORATORY DATA: WBC 5200 with 80% segmented. Hemoglobin stable at 12.3. Ileostomy is functioning from 7:00 a.m. until now, which is 1 p.m. 150 mL of greenish fluid in the ileostomy bag. PHYSICAL EXAMINATION: HEART: Regular. LUNGS: Clear. ABDOMEN: Upper part is very distended, tympanic. I am not sure if this is gas in the stomach or gas in the transverse colon. We are going to get a KU B to find out the exact nature of this distention and also a chest x-ray. The patient was encouraged to get out of bed and walk around. Sung catheter is in place and keep it at least tomorrow. Dictated By: LANCE MUNOZ MD PS/NTS Conf#: [id number] DID#: [id number] CC: SUKHJINDER KINGSTON MD; LISA ENRIQUE;*EndCC*
[2018-11-04 14:27] VITALS: BP 114/75; PULSE 63; RESP 15
--- NOTE | 2018-11-04 18:18 | PN ---
Date/Time of Note Date/Time of Note DATE: 11/04/18 TIME: 18:17 Assessment/Plan VTE Prophylaxis Risk score (from Ns)>0 risk: 3 SCD applied (from Ns): Yes Pharmacological prophylaxis: NA/contraindicated Pharm contraindication: surgical contra Lines/Catheters IV [facility]ter [facility]from [facility]): Peripheral IV Urinary Cath still in place: Yes Reason Cath still needed: urinary retention Assessment/Plan Hospital Course 1. S/p total proctocolectomy with coloanal anastomosis and mobilization of splenic flexure. Diverting ileostomy. POD # 5 2 Macrocytic hyperchromic anemia 3 hx smoking 4 hx of rectal cancer consistent with adenocarcinoma, moderately- differentiated, ulcerated 5. Overweight Assessment/Plan - ice chips per surgery> advance diet per surgery - Zofran/reglan prn nausea - dilaudid prn pain - iv fluids with KCL at 100 cc/hr - fu surgery recs -? Sung to be taken out per surgery -c/w PT recs -DVT proph. unable to do pharmacological due to recent surgery -GI proph. start protonix Result Diagram: 11/04/18 0427 11/03/18 0440 Results 24hrs Laboratory Tests Test 11/04/18 04:27 11/04/18 07:17 White Blood Count 5.2 Red Blood Count 3.58 L Hemoglobin 12.3 L Hematocrit 36.3 L Mean Corpuscular Volume 101.4 H Mean Corpuscular Hemoglobin 34.4 H Mean Corpuscular Hemoglobin Concent 33.9 Red Cell Distribution Width 11.8 Platelet Count 174 Mean Platelet Volume 10.5 H Immature Granulocytes % 1.200 H Neutrophils % 80.6 H Lymphocytes % 7.3 L Monocytes % 9.0 Eosinophils % 1.5 Basophils % 0.4 Nucleated Red Blood Cells % 0.0 Immature Granulocytes # 0.060 H Neutrophils # 4.2 Lymphocytes # 0.4 L Monocytes # 0.5 Eosinophils # 0.1 Basophils # 0.0 Nucleated Red Blood Cells # 0.0 Lab Scanned Report REFERENCE LAB Subjective 24 Hr Interval Summary Gastrointestinal: pain, flatus; No no complaints, No blood, No constipation, No decreased appetite, No diarrhea, No nausea, No passing stool, No vomiting, No other Exam/Review of Systems Exam Vitals Vital Signs Date Temp Pulse Resp B/P (MAP) Pulse Ox O2 O2 Flow FiO2 Time Delivery Rate 11/04/18 98.2 63 15 114/75 100 Room Air 14:27 (88) Intake and Output 11/03/18 11/03/18 11/04/18 1515:00 23:00 07:00 IntakeIntake Total 475 ml 100 ml 1100 ml OutputOutput Total 700 ml 1100 ml BalanceBalance 475 ml -600 ml 0 ml Constitutional: alert, oriented ENMT: nl external ears & nose Neck: supple Respiratory: clear to auscultation Cardiovascular: regular rate and rhythm Gastrointestinal: bowel sounds, distended, surgical scars, other (ileostomy); No soft, No nl liver, spleen, No non-tender, No ascites, No firm, No hepatomegaly, No mass, No rebound or guarding, No splenomegaly, No tender Musculoskeletal: nl extremities to inspection Results Results 24hrs Laboratory Tests Test 11/04/18 04:27 11/04/18 07:17 White Blood Count 5.2 Red Blood Count 3.58 L Hemoglobin 12.3 L Hematocrit 36.3 L Mean Corpuscular Volume 101.4 H Mean Corpuscular Hemoglobin 34.4 H Mean Corpuscular Hemoglobin Concent 33.9 Red Cell Distribution Width 11.8 Platelet Count 174 Mean Platelet Volume 10.5 H Immature Granulocytes % 1.200 H Neutrophils % 80.6 H Lymphocytes % 7.3 L Monocytes % 9.0 Eosinophils % 1.5 Basophils % 0.4 Nucleated Red Blood Cells % 0.0 Immature Granulocytes # 0.060 H Neutrophils # 4.2 Lymphocytes # 0.4 L Monocytes # 0.5 Eosinophils # 0.1 Basophils # 0.0 Nucleated Red Blood Cells # 0.0 Lab Scanned Report REFERENCE LAB Medications Medication Current Medications Miscellaneous Information (* Miscellaneous Pharmacy Order) DURAMORPH: 3 MG EPIDU... GIVEN NEURAXIAL XX ; Start 10/30/18 at 08:00 Naloxone HCl (Narcan) 0.2 mg Q2M PRN IV .RESP RATE; Start 10/30/18 at 13:00 Potassium Chloride/Dextrose/ Sod Cl 1,000 ml @ 100 mls/hr Q10H IV Last administered on 11/04/18at 16:43; Admin Dose 100 MLS/HR; Start 10/30/18 at 16:00 Piperacillin Sod/ Tazobactam Sod 100 ml @ 200 mls/hr Q6 IVPB Last administered on 11/04/18 12:05; Admin Dose 200 MLS/HR; Start 10/30/18 at 18:00 Ondansetron HCl (Zofran Inj) 4 mg Q4H PRN IV NAUSEA AND/OR VOMITING Last administered on 11/03/18 00:48; Admin Dose 4 MG; Start 10/31/18 at 09:30 Metoclopramide HCl (Reglan) 10 mg Q6 PRN IV NAUSEA Last administered on 11/04/18 18:05; Admin Dose 10 MG; Start 10/31/18 at 12:00 Hydromorphone HCl (Dilaudid) 0.5 mg Q3H PRN IV SEVERE PAIN LEVEL 7-10 Last administered on 11/03/18 00:48; Admin Dose 0.5 MG; Start 10/31/18 at 13:00 Phenol (Cepastat Lozenge) 1 lozenge Q1H PRN MT SORE THROAT Last administered on 11/02/18 20:41; Admin Dose 1 LOZENGE; Start 10/31/18 at 13:00 Lorazepam (Ativan) 1 mg BID PRN IV ANXIETY Last administered on 11/02/18 11:05; Admin Dose 1 MG; Start 11/01/18 at 21:30 Phenol (Cepastat Lozenge) 1 lozenge Q1H PRN MT PAIN; Start 11/02/18 at 14:30 MICHELLE ZHAO Nov 04, 2018 18:17
[2018-11-04 20:17] VITALS: BP 120/75; PULSE 71; RESP 18
[2018-11-05] MEDS: PIPER-TAZO 3.375 GM IV (PMX) 100 ML IVPB SCH ×5 (00:31→23:48)
[2018-11-05 02:25] VITALS: BP 115/69; PULSE 67; RESP 18
[2018-11-05] MEDS: D5W-0.45 NACL + KCL 20 MEQ 1,000 ML IV SCH ×2 (03:32→14:39)
[2018-11-05] MEDS: PANTOPRAZOLE 40 MG INJ IV SCH (06:37)
[2018-11-05 07:20] VITALS: BP 125/72; PULSE 64; RESP 17
--- NOTE | 2018-11-05 14:30 | PN ---
DATE: 11/05/2018 Postop day #6 status post rectosigmoid resection and coloanal anastomosis and placement of diverting end ileostomy for cancer of the rectum. As was mentioned, this is postop day #6. SUBJECTIVE: No specific complaint. OBJECTIVE: GENERAL: Awake, alert, oriented x3. VITAL SIGNS: Temperature maximum 98.9, heart rate 67, respiration 18, blood pressure 115/69, saturation 96% on room air. HEART: Regular. LUNGS: Clear. ABDOMEN: Still there is distention and tympanic especially the upper part of abdomen. The midline incision wound is clean. The ileostomy junction poured out greenish liquid. EXTREMITIES: Legs have no calf tenderness. GENITOURINARY: Sung catheter still is in place. LABORATORY DATA: WBC 5300 with 72% segmented, which is normal differential, hemoglobin 12.4, hematocrit 36.5. Chemistry: Sodium, potassium, BUN, creatinine within normal limits. INPUT AND OUTPUT: Urine output in the past 24 hours was 1800 mL and ileostomy has drained 350 mL. DIAGNOSTIC DATA: The KUB that we got last night was read by Dr. Morales following is impression, findings indicatin. Mid to distal small-bowel obstruction. 2. A 1.3 cm area of sclerosis seen in the intertrochanteric proximal right femur which is likely cyst representing bone island and possible of blastic metastasis is less likely. 3. Sung catheter is seen within the bladder and curvilinear staple line is seen inferior to pubic symphysis (the reason that the radiologist as mentioned of small-bowel obstruction because I think it is due to the fact that there is distention of the small bowel loops and there is paucity of no gas in the colon, but I should mention that the reason there is no gas in the colon because the patient has diverting end ileostomy and therefore there should not be any gas in the colon anyway, but the reason for distended bowel loops is not clear to me. It could be ileus). They have read got another KUB today, but the report and the x-ray is not in the computer yet. PLAN: 1. Continue the patient on clear liquid. 2. Discontinue the Sung catheter. 3. Out of bed and walk around. We will continue to follow. Dictated By: LANCE MUNOZ MD PS/NTS Conf#: [id number] [facility]#: [id number] CC: SUKHJINDER KINGSTON MD; LISA ENRIQUE;*EndCC* MTDD
--- NOTE | 2018-11-05 15:45 | PN ---
Date/Time of Note Date/Time of Note DATE: 11/05/18 TIME: 15:42 Assessment/Plan VTE Prophylaxis Risk score (from Ns)>0 risk: 8 SCD applied (from Ns): Yes Pharmacological prophylaxis: NA/contraindicated Pharm contraindication: surgical contra Lines/Catheters IV Catheter Type (from [facility]): Peripheral IV Urinary Cath still in place: No Assessment/Plan Hospital Course 1. S/p total proctocolectomy with coloanal anastomosis and mobilization of splenic flexure. Diverting ileostomy. POD # 6. Ieostomy is draining, but KUB is reported: Gas filled, dilated loops of small bowel in the mid and upper abdomen, compatible with small bowel ileus or obstruction. Appearance is unchanged from prior exam. 2 Macrocytic hyperchromic anemia 3 hx smoking 4 hx of rectal cancer consistent with adenocarcinoma, moderately- differentiated, ulcerated 5. Overweight 6. Stable 10 mm well-defined focus of sclerosis in the right hip. This lesion has a nonaggressive appearance and likely reflects a bone island. Spoke to to see a PET scan prior surgery Assessment/Plan -ambulated TID - ice chips per surgery> advance diet per surgery - Zofran/reglan prn nausea - dilaudid prn pain, spoke to pt decrease as much as possible - iv fluids with KCL at 100 cc/hr - fu surgery recs -c/w PT recs -IS q 1h -DVT proph. unable to do pharmacological due to recent surgery -GI proph. protonix Result Diagram: 11/05/189 11/05/18428 Results 24hrs Laboratory Tests Test 11/05/18 04:29 White Blood Count 5.3 Red Blood Count 3.60 L Hemoglobin 12.4 L Hematocrit 36.5 L Mean Corpuscular Volume 101.4 H Mean Corpuscular Hemoglobin 34.4 H Mean Corpuscular Hemoglobin Concent 34.0 Red Cell Distribution Width 11.9 Platelet Count 170 Mean Platelet Volume 10.7 H Immature Granulocytes % 1.900 H Neutrophils % 72.6 Lymphocytes % 9.9 L Monocytes % 12.2 H Eosinophils % 2.8 Basophils % 0.6 Nucleated Red Blood Cells % 0.0 Immature Granulocytes # 0.100 H Neutrophils # 3.9 Lymphocytes # 0.5 L Monocytes # 0.7 Eosinophils # 0.2 Basophils # 0.0 Nucleated Red Blood Cells # 0.0 Sodium Level 137 Potassium Level 3.7 Chloride Level 103 Carbon Dioxide Level 28 Anion Gap 6 Blood Urea Nitrogen 12 Creatinine 0.95 Est Glomerular Filtrat Rate mL/min > 60 Glucose Level 105 Calcium Level 8.7 Subjective 24 Hr Interval Summary Gastrointestinal: pain, nausea; No no complaints, No blood, No constipation, No decreased appetite, No di arrhea, No flatus, No passing stool, No vomiting, No other Exam/Review of Systems Exam Vitals Vital Signs Date Temp Pulse Resp B/P (MAP) Pulse Ox O2 O2 Flow FiO2 Time Delivery Rate 11/05/18 98.7 64 17 125/72 100 Room Air 07:20 (89) Intake and Output 11/04/18 11/04/18 11/05/18 1515:00 23:00 07:00 IntakeIntake Total 200 ml 1100 ml 1350 ml OutputOutput Total 150 ml 850 ml 1250 ml BalanceBalance 50 ml 250 ml 100 ml Constitutional: alert, oriented Head: normocephalic Eyes: nl conjunctiva Respiratory: clear to auscultation Cardiovascular: regular rate and rhythm Gastrointestinal: soft, bowel sounds (scattered), surgical scars, other (ileostomy with green drainage) Extremities: normal pulses Results Results 24hrs Laboratory Tests Test 11/05/18 04:29 White Blood Count 5.3 Red Blood Count 3.60 L Hemoglobin 12.4 L Hematocrit 36.5 L Mean Corpuscular Volume 101.4 H Mean Corpuscular Hemoglobin 34.4 H Mean Corpuscular Hemoglobin Concent 34.0 Red Cell Distribution Width 11.9 Platelet Count 170 Mean Platelet Volume 10.7 H Immature Granulocytes % 1.900 H Neutrophils % 72.6 Lymphocytes % 9.9 L Monocytes % 12.2 H Eosinophils % 2.8 Basophils % 0.6 Nucleated Red Blood Cells % 0.0 Immature Granulocytes # 0.100 H Neutrophils # 3.9 Lymphocytes # 0.5 L Monocytes # 0.7 Eosinophils # 0.2 Basophils # 0.0 Nucleated Red Blood Cells # 0.0 Sodium Level 137 Potassium Level 3.7 Chloride Level 103 Carbon Dioxide Level 28 Anion Gap 6 Blood Urea Nitrogen 12 Creatinine 0.95 Est Glomerular Filtrat Rate mL/min > 60 Glucose Level 105 Calcium Level 8.7 Medications Medication Current Medications Miscellaneous Information (* Miscellaneous Pharmacy Order) DURAMORPH: 3 MG EPIDU... GIVEN NEURAXIAL XX ; Start 4/8/19 at 08:00 Naloxone HCl (Narcan) 0.2 mg Q2M PRN IV .RESP RATE; Start 10/30/18 at 13:00 Potassium Chloride/Dextrose/ Sod Cl 1,000 ml @ 100 mls/hr Q10H IV Last administered on 11/05/18 14:39; Admin Dose 100 MLS/HR; Start 10/30/18 at 16:00 Piperacillin Sod/ Tazobactam Sod 100 ml @ 200 mls/hr Q6 IVPB Last administered on 11/05/18 12:09; Admin Dose 200 MLS/HR; Start 10/30/18 at 18:00 Ondansetron HCl (Zofran Inj) 4 mg Q4H PRN IV NAUSEA AND/OR VOMITING Last administered on 11/03/18 00:48; Admin Dose 4 MG; Start 10/31/18 at 09:30 Metoclopramide HCl (Reglan) 10 mg Q6 PRN IV NAUSEA Last administered on 18:05; Admin Dose 10 MG; Start 10/31/18 at 12:00 Hydromorphone HCl (Dilaudid) 0.5 mg Q3H PRN IV SEVERE PAIN LEVEL 7-10 Last administered on 11/03/18 00:48; Admin Dose 0.5 MG; Start 10/31/18 at 13:00 Phenol (Cepastat Lozenge) 1 lozenge Q1H PRN MT SORE THROAT Last administered on 11/02/18 20:41; Admin Dose 1 LOZENGE; Start 10/31/18 at 13:00 Lorazepam (Ativan) 1 mg BID PRN IV ANXIETY Last administered on 11/02/18 11:05; Admin Dose 1 MG; Start 11/01/18 at 21:30 Pantoprazole (Protonix Iv) 40 mg DAILY@06 IV Last administered on 11/05/18 06:37; Admin Dose 40 MG; Start 11/05/18 at 06:00 MICHELLE ZHAO Nov 05, 2018 15:45
[2018-11-05 19:23] VITALS: BP 119/69; PULSE 69; RESP 16
[2018-11-06] MEDS: D5W-0.45 NACL + KCL 20 MEQ 1,000 ML IV SCH ×2 (01:33→16:16)
[2018-11-06 01:51] VITALS: BP 97/63; PULSE 66; RESP 16
[2018-11-06] MEDS: PIPER-TAZO 3.375 GM IV (PMX) 100 ML IVPB SCH ×4 (05:43→23:26)
[2018-11-06] MEDS: PANTOPRAZOLE 40 MG INJ IV SCH (05:43)
[2018-11-06 07:25] VITALS: BP 119/62; PULSE 72; RESP 18
[2018-11-06] MEDS ORDERED: IOHEXOL 300MG/ML 150 ML BTL ONE (09:05)
--- NOTE | 2018-11-06 11:45 | PN ---
Date/Time of Note Date/Time of Note DATE: 11/06/18 TIME: 11:42 Assessment/Plan VTE Prophylaxis Risk score (from Ns)>0 risk: 8 SCD applied (from Ns): Yes Pharmacological prophylaxis: NA/contraindicated Pharm contraindication: low risk/ambulating Lines/Catheters IV Catheter Type (from Nrsg): Peripheral IV Urinary Cath still in place: No Assessment/Plan Hospital Course 53 Y/O with 1. Rectal cancer s/p Total proctocolectomy with coloanal anastomosis. 2. M obilization of splenic flexure.3. Diverting ileostomy. POD #7 2 Post op pain 3 hx smoking 4 Rectal cancer Plan -cld > advance per surgery - Zofran/reglan prn nausea - GI prophylaxsis - dilaudid prn pain - change iv fluids - fu Surgery recs - Ambulate Result Diagram: 11/06/188 11/06/18 0438 Results 24hrs Laboratory Tests Test 11/06/18 04:38 White Blood Count 5.5 Red Blood Count 3.74 L Hemoglobin 12.8 L Hematocrit 37.5 L Mean Corpuscular Volume 100.3 Mean Corpuscular Hemoglobin 34.2 H Mean Corpuscular Hemoglobin Concent 34.1 Red Cell Distribution Width 11.8 Platelet Count 193 Mean Platelet Volume 10.5 H Immature Granulocytes % 1.800 H Neutrophils % 72.0 Lymphocytes % 12.1 L Monocytes % 10.8 Eosinophils % 2.9 Basophils % 0.4 Nucleated Red Blood Cells % 0.0 Immature Granulocytes # 0.100 H Neutrophils # 3.9 Lymphocytes # 0.7 L Monocytes # 0.6 Eosinophils # 0.2 Basophils # 0.0 Nucleated Red Blood Cells # 0.0 Sodium Level 138 Potassium Level 4.1 Chloride Level 103 Carbon Dioxide Level 28 Anion Gap 7 Blood Urea Nitrogen 11 Creatinine 1.03 Est Glomerular Filtrat Rate mL/min > 60 Glucose Level 104 Calcium Level 9.0 Subjective 24 Hr Interval Summary Free Text/Dictation Ileostomy bag is full. Feels slight pain Exam/Review of Systems Exam Vitals Vital Signs Date Temp Pulse Resp B/P (MAP) Pulse Ox O2 O2 Flow FiO2 Time Delivery Rate 11/06/18 98.2 72 18 119/62 98 Room Air 07:25 (81) Intake and Output 11/05/18 11/05/18 11/06/18 1515:00 23:00 07:00 IntakeIntake Total 1050 ml 675 ml 1615 ml OutputOutput Total 600 ml 925 ml 2100 ml BalanceBalance 450 ml -250 ml -485 ml Exam Constitutional: alert, oriented ENMT: nl external ears & nose Neck: supple Respiratory: clear to auscultation Cardiovascular: regular rate and rhythm Gastrointestinal: bowel sounds, distended, surgical scars, other (ileostomy); ileostomy bag draining well hypoactive bowel sounds Musculoskeletal: nl extremities to inspection Results Results 24hrs Laboratory Tests Test 11/06/18 04:38 White Blood Count 5.5 Red Blood Count 3.74 L Hemoglobin 12.8 L Hematocrit 37.5 L Mean Corpuscular Volume 100.3 Mean Corpuscular Hemoglobin 34.2 H Mean Corpuscular Hemoglobin Concent 34.1 Red Cell Distribution Width 11.8 Platelet Count 193 Mean Platelet Volume 10.5 H Immature Granulocytes % 1.800 H Neutrophils % 72.0 Lymphocytes % 12.1 L Monocytes % 10.8 Eosinophils % 2.9 Basophils % 0.4 Nucleated Red Blood Cells % 0.0 Immature Granulocytes # 0.100 H Neutrophils # 3.9 Lymphocytes # 0.7 L Monocytes # 0.6 Eosinophils # 0.2 Basophils # 0.0 Nucleated Red Blood Cells # 0.0 Sodium Level 138 Potassium Level 4.1 Chloride Level 103 Carbon Dioxide Level 28 Anion Gap 7 Blood Urea Nitrogen 11 Creatinine 1.03 Est Glomerular Filtrat Rate mL/min > 60 Glucose Level 104 Calcium Level 9.0 Medications Medication Current Medications Miscellaneous Information (* Miscellaneous Pharmacy Order) DURAMORPH: 3 MG EPIDU... GIVEN NEURAXIAL XX ; Start 10/30/18 at 08:00 Naloxone HCl (Narcan) 0.2 mg Q2M PRN IV .RESP RATE; Start 10/30/18 at 13:00 Potassium Chloride/Dextrose/ Sod Cl 1,000 ml @ 100 mls/hr Q10H IV Last administered on 11/06/18at 01:33; Admin Dose 100 MLS/HR; Start 10/30/18 at 16:00 Piperacillin Sod/ Tazobactam Sod 100 ml @ 200 mls/hr Q6 IVPB Last administered on 11/06/18at 05:43; Admin Dose 200 MLS/HR; Start 10/30/18 at 18:00 Ondansetron HCl (Zofran Inj) 4 mg Q4H PRN IV NAUSEA AND/OR VOMITING Last administered on 11/03/18 00:48; Admin Dose 4 MG; Start 10/31/18 at 09:30 Metoclopramide HCl (Reglan) 10 mg Q6 PRN IV NAUSEA Last administered on 11/04/18 18:05; Admin Dose 10 MG; Start 10/31/18 at 12:00 Hydromorphone HCl (Dilaudid) 0.5 mg Q3H PRN IV SEVERE PAIN LEVEL 7-10 Last administered on 11/03/18 00:48; Admin Dose 0.5 MG; Start 10/31/18 at 13:00 Phenol (Cepastat Lozenge) 1 lozenge Q1H PRN MT SORE THROAT Last administered on 11/02/18 20:41; Admin Dose 1 LOZENGE; Start 10/31/18 at 13:00 Lorazepam (Ativan) 1 mg BID PRN IV ANXIETY Last administered on 11/02/18 11:05; Admin Dose 1 MG; Start 11/01/18 at 21:30 Pantoprazole (Protonix Iv) 40 mg DAILY@06 IV Last administered on 11/06/18 05:43; Admin Dose 40 MG; Start 11/05/18 at 06:00 LISA ENRIQUE MD Nov 06, 2018 11:45
[2018-11-06] MEDS: METOCLOPRAMIDE 10 MG INJ IV PRN (14:10)
[2018-11-06 14:26] VITALS: BP 122/75; PULSE 68; RESP 18
--- NOTE | 2018-11-06 19:16 | PN ---
DATE: 11/06/2018 Postop day #7 status post laparotomy, rectosigmoid cancer resection and coloanal anastomosis and plac ement of diverting end ileostomy. SUBJECTIVE: Actually, I have seen the patient today twice and once exactly after we finished having small bowel series and then another time about 3 hours later. At this time, the patient actually vom ited at around 4:00 in the afternoon, but also ileostomy is functioning and putting out greenish liqu id. We got the small bowel follow-through because this x-ray yesterday there is suspicion of obstruc tion and recommended small bowel series and we did at the radiologist. The contrast material reaches the ileostomy bag within an hour or an hour and half. No evidence of obstruction, but there are sev eral loops of small bowel which was very dilated before taking the contrast material. OBJECTIVE: GENERAL: Awake, alert, oriented. VITAL SIGNS: Today, temperature maximum has been 98.8, heart rate 68, respiration 18, blood pressure 122/75, saturation 96% on room air. HEART: Regular. LUNGS: Clear. ABDOMEN: Distention is less and is softer than before, but still there are tympanic areas in the mid dle of the abdomen. Bowel sound is present. Ileostomy bag shows that the ileostomy bag was full of greenish liquid fluid. EXTREMITIES: Legs have no calf tenderness. LABORATORY DATA: WBC 5500 with 72% segmented, which is normal differential, hemoglobin 12.8, hematoc rit 37.5. Chemistry: Sodium, potassium, BUN, creatinine within normal limits. ASSESSMENT AND PLAN: I am not sure what is the cause of this ileus with this patient because there i s obstruction and contrast material had reached the ileocecal valve within an hour and hour and a molly f, but also the patient vomited the contrast material which was given to him a few hours before that; therefore today afternoon, we are going to keep him n.p.o. tonight and we will repeat the KUB tomorr ow and then we will make a decision for feeding or not. Dictated By: LANCE MUNOZ MD PS/NTS Conf#: [id number] DID#: [id number] CC: SUKHJINDER KINGSTON MD; LISA ENRIQUE; NASIR SÁNCHEZ MD;*EndCC*
[2018-11-06 20:44] VITALS: BP 113/76; PULSE 74; RESP 17
[2018-11-07] MEDS: D5W-0.45 NACL + KCL 20 MEQ 1,000 ML IV SCH ×5 (00:01→21:28)
[2018-11-07 02:37] VITALS: BP 125/78; PULSE 79; RESP 18
[2018-11-07] MEDS: PIPER-TAZO 3.375 GM IV (PMX) 100 ML IVPB SCH ×4 (05:24→23:27)
[2018-11-07] MEDS: PANTOPRAZOLE 40 MG INJ IV SCH (05:24)
[2018-11-07 08:02] VITALS: BP 123/72; PULSE 76; RESP 18
--- NOTE | 2018-11-07 11:56 | PN ---
Date/Time of Note Date/Time of Note DATE: 11/07/18 TIME: 11:54 Assessment/Plan VTE Prophylaxis Risk score (from Ns)>0 risk: 8 SCD applied (from Ns): Yes Pharmacological prophylaxis: NA/contraindicated Pharm contraindication: low risk/ambulating Lines[facility]Catheters [facility] IV Urinary Cath still in place: No Assessment/Plan Hospital Course 53 Y/O with 1. Rectal cancer s/p Total proctocolectomy with coloanal anastomosis. 2. M obilization of splenic flexure.3. Diverting ileostomy. POD #8 now on KUB with SBO vs ILEUS 2 Post op pain 3 hx smoking 4 Rectal cancer Plan - NPO again -Management per surgery - Ambulate - avoid narcotics - Zofran/reglan prn nausea - GI prophylaxsis - change iv fluids - fu Surgery recs Result Diagram: 11/06/18 0438 11/06/18 0438 Subjective 24 Hr Interval Summary Free Text/Dictation 1 episode of emesis felt belly was very distended last night Exam/Review of Systems Exam Vitals Vital Signs Date Temp Pulse Resp B/P (MAP) Pulse Ox O2 O2 Flow FiO2 Time Delivery Rate 11/07/18 98.7 76 18 123/72 98 Room Air 08:02 (89) Intake and Output 11/06/18 11/06/18 11/07/18 1515:00 23:00 07:00 IntakeIntake Total 1400 ml 1100 ml OutputOutput Total 200 ml 1680 ml 600 ml BalanceBalance -200 ml -280 ml 500 ml Exam Constitutional: alert, oriented ENMT: nl external ears & nose Neck: supple Respiratory: clear to auscultation Cardiovascular: regular rate and rhythm Gastrointestinal: bowel sounds, distended, surgical scars, other (ileostomy); ileostomy bag draining well hypoactive bowel sounds Musculoskeletal: nl extremities to inspection Medications Medication Current Medications Miscellaneous Information (* Miscellaneous Pharmacy Order) DURAMORPH: 3 MG EPIDU... GIVEN NEURAXIAL XX ; Start 10/30/18 at 08:00 Naloxone HCl (Narcan) 0.2 mg Q2M PRN IV .RESP RATE; Start 10/30/18 at 13:00 Potassium Chloride/Dextrose/ Sod Cl 1,000 ml @ 100 mls/hr Q10H IV Last administered on 11/07/18 03:27; Admin Dose 100 MLS/HR; Start 10/30/18 at 16:00 Piperacillin Sod/ Tazobactam Sod 100 ml @ 200 mls/hr Q6 IVPB Last administered on 11/07/18 05:24; Admin Dose 200 MLS/HR; Start 10/30/18 at 18:00 Ondansetron HCl (Zofran Inj) 4 mg Q4H PRN IV NAUSEA AND/OR VOMITING Last administered on 11/03/18 00:48; Admin Dose 4 MG; Start 10/31/18 at 09:30 Metoclopramide HCl (Reglan) 10 mg Q6 PRN IV NAUSEA Last administered on 11/06/18 14:10; Admin Dose 10 MG; Start 10/31/18 at 12:00 Hydromorphone HCl (Dilaudid) 0.5 mg Q3H PRN IV SEVERE PAIN LEVEL 7-10 Last administered on 11/03/18 00:48; Admin Dose 0.5 MG; Start 10/31/18 at 13:00 Phenol (Cepastat Lozenge) 1 lozenge Q1H PRN MT SORE THROAT Last administered on 11/02/18 20:41; Admin Dose 1 LOZENGE; Start 10/31/18 at 13:00 Lorazepam (Ativan) 1 mg BID PRN IV ANXIETY Last administered on 11/02/18 11:05; Admin Dose 1 MG; Start 11/01/18 at 21:30 Pantoprazole (Protonix Iv) 40 mg DAILY@06 IV Last administered on 11/07/18 05:24; Admin Dose 40 MG; Start 11/05/18 at 06:00 LISA ENRIQUE MD Nov 07, 2018 11:56
[2018-11-07 14:33] VITALS: BP 119/79; PULSE 84; RESP 20
--- NOTE | 2018-11-07 17:58 | PN ---
DATE: 11/07/2018 Postop day #8 status post laparotomy, very low resection of the cancer of the rectum with coloanal an astomosis and placement of diverting end ileostomy. SUBJECTIVE: No specific complaint. No nausea, no vomiting anymore yesterday afternoon vomiting 1 ep isode. Ileostomy has been functioning. The patient has been urinating, but states that after 2 days removing the Sung catheter as of today or last night when he urinates, it is bothering him and is g iving him burning sensation and per nurse, the color of the urine was very cloudy. OBJECTIVE: GENERAL: Awake, alert, oriented. VITAL SIGNS: Temperature maximum 98.8, heart rate 79, respiration 18, blood pressure 123/72, saturat ion 98% room air. HEART: Regular. LUNGS: Clear. ABDOMEN: Not rigid, is soft, distention in mid abdomen and epigastric area is less, but still there is some evidence of mild distention. LABORATORY DATA: No labs today. DIAGNOSTIC DATA: We repeated KUB today morning almost 24 hours after examining the small bowel by gi ving patient Gastrografin and the official report is as follows: Impression: Continued gas and oral contrast filled, dilated loops of small bowel throughout the abdomen. No contrast is identified in the colon. Appearance remains compatible with a small-bowel obstruction or ileus. Also, there is a couple of more statement that I am not repeating them here but is documented in the computer text of the radiology. The case was discussed with Dr. Banerjee and plan is to observe him a couple of more days. I am going t o start the patient on full liquid diet and advance to soft diet if he can tolerate. We are going to increase his IV to 150 mL per hour for 12 hours and we are going to repeat urinalysis and urine cult ure. Dictated By: LANCE MUNOZ MD PS/NTS Conf#: [id number] DID#: [id number] CC: NASIR BANERJEE MD; LISA ENRIQUE; SUKHJINDER KINGSTON MD;*EndCC*
[2018-11-07 20:16] VITALS: BP 106/61; PULSE 73; RESP 18
[2018-11-08] MEDS: D5W-0.45 NACL + KCL 20 MEQ 1,000 ML IV SCH ×5 (00:36→21:35)
[2018-11-08 02:29] VITALS: BP 100/60; PULSE 69; RESP 18
[2018-11-08] MEDS: PIPER-TAZO 3.375 GM IV (PMX) 100 ML IVPB SCH ×2 (05:06→12:16)
[2018-11-08] MEDS: PANTOPRAZOLE 40 MG INJ IV SCH (05:07)
[2018-11-08 08:00] VITALS: BP 111/64; PULSE 72; RESP 18
[2018-11-08] MEDS ORDERED: KETOROLAC 15 MG INJ IV PRN (13:30)
--- NOTE | 2018-11-08 15:53 | PN ---
Date/Time of Note Date/Time of Note DATE: 11/08/18 TIME: 15:51 Assessment/Plan VTE Prophylaxis Risk score (from Ns)>0 risk: 3 SCD applied (from Ns): Yes Pharmacological prophylaxis: NA/contraindicated Pharm contraindication: low risk/ambulating Lines/Catheters IV C[facility]ter Type (from [facility] Peripheral IV Urinary Cath still in place: No Assessment/Plan Hospital Course 53 Y/O with 1. Rectal cancer s/p Total proctocolectomy with coloanal anastomosis. 2. M obilization of splenic flexure.3. Diverting ileostomy. POD #8 now on KUB with SBO vs ILEUS 2 Post op pain 3 hx smoking 4 Rectal cancer Plan - NPO again> advanced diet -Management per surgery - fluids adjusted per surgery - ileostomy training - Ambulate - avoid narcotics - Zofran/reglan prn nausea - GI prophylaxsis - change iv fluids - fu Surgery recs Result Diagram: 11/08/18 0437 11/06/18 0438 Results 24hrs Laboratory Tests Test 11/08/18 04:37 White Blood Count 6.4 Red Blood Count 3.75 L Hemoglobin 12.8 L Hematocrit 38.5 L Mean Corpuscular Volume 102.7 H Mean Corpuscular Hemoglobin 34.1 H Mean Corpuscular Hemoglobin Concent 33.2 Red Cell Distribution Width 11.8 Platelet Count 258 # Mean Platelet Volume 10.4 Immature Granulocytes % 1.900 H Neutrophils % 73.2 Lymphocytes % 11.2 L Monocytes % 9.8 Eosinophils % 3.3 Basophils % 0.6 Nucleated Red Blood Cells % 0.0 Immature Granulocytes # 0.120 H Neutrophils # 4.7 Lymphocytes # 0.7 L Monocytes # 0.6 Eosinophils # 0.2 Basophils # 0.0 Nucleated Red Blood Cells # 0.0 Subjective 24 Hr Interval Summary Free Text/Dictation pt was started om diet Exam/Review of Systems Exam Vitals Vital Signs Date Temp Pulse Resp B/P (MAP) Pulse Ox O2 O2 Flow FiO2 Time Delivery Rate 11/08/18 98.0 72 18 111/64 94 Room Air 08:00 (80) Intake and Output 11/07/18 11/07/18 11/08/18 1515:00 23:00 07:00 IntakeIntake Total 1100 ml 1410 ml 1050 ml OutputOutput Total 350 ml 450 ml BalanceBalance 750 ml 960 ml 1050 ml Exam Constitutional: alert, oriented ENMT: nl external ears & nose Neck: supple Respiratory: clear to auscultation Cardiovascular: regular rate and rhythm Gastrointestinal: bowel sounds, distended, surgical scars, other (ileostomy); ileostomy bag draining well hypoactive bowel sounds Musculoskeletal: nl extremities to inspection Results Results 24hrs Laboratory Tests Test 11/08/18 04:37 White Blood Count 6.4 Red Blood Count 3.75 L Hemoglobin 12.8 L Hematocrit 38.5 L Mean Corpuscular Volume 102.7 H Mean Corpuscular Hemoglobin 34.1 H Mean Corpuscular Hemoglobin Concent 33.2 Red Cell Distribution Width 11.8 Platelet Count 258 # Mean Platelet Volume 10.4 Immature Granulocytes % 1.900 H Neutrophils % 73.2 Lymphocytes % 11.2 L Monocytes % 9.8 Eosinophils % 3.3 Basophils % 0.6 Nucleated Red Blood Cells % 0.0 Immature Granulocytes # 0.120 H Neutrophils # 4.7 Lymphocytes # 0.7 L Monocytes # 0.6 Eosinophils # 0.2 Basophils # 0.0 Nucleated Red Blood Cells # 0.0 Medications Medication Current Medications Miscellaneous Information (* Miscellaneous Pharmacy Order) DURAMORPH: 3 MG EPIDU... GIVEN NEURAXIAL XX ; Start 10/30/18 at 08:00 Naloxone HCl (Narcan) 0.2 mg Q2M PRN IV .RESP RATE; Start 10/30/18 at 13:00 Potassium Chloride/Dextrose/ Sod Cl 1,000 ml @ 120 mls/hr Q8H20M IV Last administered on 11/08/18at 12:12; Admin Dose 150 MLS/HR; Start 10/30/18 at 16:00 Ondansetron HCl (Zofran Inj) 4 mg Q4H PRN IV NAUSEA AND/OR VOMITING Last administered on 11/03/18at 00:48; Admin Dose 4 MG; Start 10/31/18 at 09:30 Metoclopramide HCl (Reglan) 10 mg Q6 PRN IV NAUSEA Last administered on 11/06/18at 14:10; Admin Dose 10 MG; Start 10/31/18 at 12:00 Hydromorphone HCl (Dilaudid) 0.5 mg Q3H PRN IV SEVERE PAIN LEVEL 7-10 Last administered on 11/03/18at 00:48; Admin Dose 0.5 MG; Start 10/31/18 at 13:00 Phenol (Cepastat Lozenge) 1 lozenge Q1H PRN MT SORE THROAT Last administered on 11/02/18at 20:41; Admin Dose 1 LOZENGE; Start 10/31/18 at 13:00 Lorazepam (Ativan) 1 mg BID PRN IV ANXIETY Last administered on 11/02/18at 11:05; Admin Dose 1 MG; Start 11/01/18 at 21:30 Pantoprazole (Protonix Iv) 40 mg DAILY@06 IV Last administered on 11/08/18 05:07; Admin Dose 40 MG; Start 11/05/18 at 06:00 Ketorolac Tromethamine (Toradol) 15 mg Q6H PRN IV PAIN; Start 11/08/18 at 13:30; Stop 11/11/18 at 13:29 LISA ENRIQUE MD Nov 08, 2018 15:53
--- NOTE | 2018-11-08 16:23 | PN ---
DATE: 11/08/2018 Postop day #9 status post laparotomy very low anterior resection of the cancer of the rectum, coloanal anastomosis and placement of diverting ileostomy for protection of the anastomosis in the pelvis. SUBJECTIVE: Complains of some pressure in the abdomen and some mild distention and mild pain and nausea. No vomiting. Has been started on soft diet as of last night. Also, has some burning sensation upon urination. Urine culture which was sent today has not grown anything until now. INPUT AND OUTPUT: Urine output in the past 24 hours was 900 mL. Ileostomy draining in the past 24 hours was 1100 mL, which is thick greenish fluid. PHYSICAL EXAMINATION: NEUROLOGIC: Awake, alert, oriented. HEART: Regular. LUNGS: Clear. ABDOMEN: There is some mild to moderate distention, slightly tympanic. Bowel sounds are present. Abdominal wound incision is clean. Ileostomy bag shows there is greenish fluid in that. I removed the old bag and I digitally examined the ileostomy with my little finger. There is question of some tightness at the level of the fascia but ileostomy of course is functioning. EXTREMITIES: Legs have no calf tenderness. ASSESSMENT AND PLAN: Postop day #9 low anterior resection with coloanal anastomosis and diverting ileostomy. Ileostomy is functioning, but the x-ray after ingestion of Gastrografin showed presence of Gastrografin contrast in the small bowel up to at least 24 hours. The official reading from yesterday's KUB which was done at 9:37 a.m. has as follows impression: Continued gas and oral contrast-filled dilated loops of small bowel throughout the abdomen, no contrast was identified in the colon, appearance remains compatible with small-bowel obstruction or ileus. I should mention that the reason there is no contrast in the colon because there is complete diverting ileostomy and the radiologist has failed to note this fact, may have not given enough information to the radiologist about the patient having diverting ileostomy. PLAN: I discussed all the findings with Dr. Banerjee. He is going to talk to his colleague that assisted in the operation and we will continue to observe the patient for the time being. We will discontinue the antibiotics as the patient has been getting few days now. We will wait for urine culture. Dictated By: LANCE GENTILE/MAYO Conf#: [id number] [facility]#: [id number] CC: NASIR BANERJEE MD; SUKHJINDER KINGSTON MD; LISA ENRIQUE;*EndCC* MTDD
[2018-11-08 16:28] VITALS: BP 110/70; PULSE 70; RESP 18
[2018-11-08 20:43] VITALS: BP 103/64; PULSE 75; RESP 19
[2018-11-09 02:15] VITALS: BP 112/62; PULSE 94; RESP 19
[2018-11-09] MEDS: PANTOPRAZOLE 40 MG INJ IV SCH (05:13)
[2018-11-09] MEDS: D5W-0.45 NACL + KCL 20 MEQ 1,000 ML IV SCH (05:14)
[2018-11-09 08:06] VITALS: BP 109/65; PULSE 62; RESP 18
[2018-11-09 15:09] VITALS: BP 100/66; PULSE 76; RESP 18
--- NOTE | 2018-11-09 15:57 | PN ---
Date/Time of Note Date/Time of Note DATE: 11/09/18 TIME: 15:56 Assessment/Plan VTE Prophylaxis Risk score (from Ns)>0 risk: 3 SCD applied (from Ns): Yes Pharmacological prophylaxis: NA/contraindicated Pharm contraindication: low risk/ambulating Lines/Catheters IV Catheter Type (from Nrsg): Peripheral IV Urinary Cath still in place: No Assessment/Plan Hospital Course 53 Y/O with 1. Rectal cancer s/p Total proctocolectomy with coloanal anastomosis. 2. M obilization of splenic flexure.3. Diverting ileostomy. POD #8 now on KUB with SBO vs ILEUS 2 Post op pain 3 hx smoking 4 Rectal cancer Plan - NPO again> advanced diet -Management per surgery - fluids adjusted per surgery - ileostomy training - Ambulate - avoid narcotics - Zofran/reglan prn nausea - GI prophylaxsis - change iv fluids - fu Surgery recs DC planning Result Diagram: 11/08/18 0437 11/06/18 0438 Subjective 24 Hr Interval Summary Free Text/Dictation Doing well ileostomy draining well Exam/Review of Systems Exam Vitals Vital Signs Date Temp Pulse Resp B/P (MAP) Pulse Ox O2 O2 Flow FiO2 Time Delivery Rate 11/09/18 98.2 76 18 100/66 90 Room Air 15:09 (77) Intake and Output 11/08/18 11/08/18 11/09/18 1515:00 23:00 07:00 IntakeIntake Total 1300 ml 1665 ml 950 ml OutputOutput Total 1100 ml BalanceBalance 200 ml 1665 ml 950 ml Exam Constitutional: alert, oriented ENMT: nl external ears & nose Neck: supple Respiratory: clear to auscultation Cardiovascular: regular rate and rhythm Gastrointestinal: bowel sounds, distended, surgical scars, other (ileostomy); ileostomy bag draining well hypoactive bowel sounds Musculoskeletal: nl extremities to inspection Medications Medication Current Medications Miscellaneous Information (* Miscellaneous Pharmacy Order) DURAMORPH: 3 MG EPIDU... GIVEN NEURAXIAL XX ; Start 10/30/18 at 08:00 Naloxone HCl (Narcan) 0.2 mg Q2M PRN IV .RESP RATE; Start 10/30/18 at 13:00 Ondansetron HCl (Zofran Inj) 4 mg Q4H PRN IV NAUSEA AND/OR VOMITING Last administered on 11/03/18 00:48; Admin Dose 4 MG; Start 10/31/18 at 09:30 Metoclopramide HCl (Reglan) 10 mg Q6 PRN IV NAUSEA Last administered on 11/06/18 14:10; Admin Dose 10 MG; Start 10/31/18 at 12:00 Hydromorphone HCl (Dilaudid) 0.5 mg Q3H PRN IV SEVERE PAIN LEVEL 7-10 Last administered on 11/03/18 00:48; Admin Dose 0.5 MG; Start 10/31/18 at 13:00 Phenol (Cepastat Lozenge) 1 lozenge Q1H PRN MT SORE THROAT Last administered on 11/02/18 20:41; Admin Dose 1 LOZENGE; Start 10/31/18 at 13:00 Lorazepam (Ativan) 1 mg BID PRN IV ANXIETY Last administered on 11/02/18 11:05; Admin Dose 1 MG; Start 11/01/18 at 21:30 Pantoprazole (Protonix Iv) 40 mg DAILY@06 IV Last administered on 11/09/18 05:13; Admin Dose 40 MG; Start 11/05/18 at 06:00 Ketorolac Tromethamine (Toradol) 15 mg Q6H PRN IV PAIN; Start 11/08/18 at 13:30; Stop 11/11/18 at 13:29 LISA ENRIQUE MD Nov 09, 2018 15:56
[2018-11-09 20:30] VITALS: BP 134/76; PULSE 95; RESP 20
[2018-11-10 02:20] VITALS: BP 137/69; PULSE 72; RESP 19
[2018-11-10] MEDS: PANTOPRAZOLE 40 MG INJ IV SCH (06:03)
--- NOTE | 2018-11-10 07:03 | PN ---
DATE: 11/09/2018 Postop day #10 status-post a low anterior resection of cancer of the rectum and follow anal anastomosis and placement of directing end-ileostomy. SUBJECTIVE: Feels better today. He reports that he has been passing gas per ileostomy into the ileostomy bag (patient in past several days, has not been passing gas and his first time that he is passing gas). No nausea, no vomiting. Has tolerated a soft diet. OBJECTIVE: VITAL SIGNS: Temperature maximum 98.6, pulse 94 , blood pressure 112/62, saturation 97% room air. Images has been done today. X-ray is normal. KUB was done today. Last night KUB was reported as follows: IMPRESSION: Multiple dilated loops of small bowel identified and contrast not definitely identified on the current exam. Findings may represent a small-bowel obstruction or ileus. HEART: Regular. LUNGS: Clear. ABDOMEN: Actually is much softer, less distended but still there is some degree of distention. He is quite soft. Ileostomy since 7:00 in the morning has put out 1600 mL of greenish fluid drainage. ASSESSMENT AND PLAN: Postop day #10 with low anterior resection and coloanal anastomosis, placement of the ileostomy. The patient continued to have distention and x-ray-wood picture of small-bowel obstruction and severely dilated small bowel loops and air fluid levels and delayed emptying of the contrast material. I did a digital examination of the ileostomy and I had the impression that it was a little bit tight at the level of the fascia, but I assume that I made some dilatation digitally since from that time on, patient has been pouring greenish fluid out of the ileostomy bag, out of the ileostomy nipple and the tension has decreased. Therefore, we are going to continue current care that he is having now. Advance diet to regular diet and then get another KUB tomorrow morning and if everything is much better. We can discharge the patient tomorrow. Dictated By: LANCE GENTILE/MAYO Conf#: [id number] DID#: [id number] MTDD
[2018-11-10 07:50] VITALS: BP 130/72; PULSE 74; RESP 18
--- NOTE | 2018-11-10 13:34 | DS ---
Date/Time of Note Date/Time of Note DATE: 11/10/18 TIME: 13:33 Discharge Summary Admission/Discharge Info Admit Date/Time Oct 30, 2018 at 06:25 Discharge Date/Time Discharge Diagnosis S/p total proctocolectomy Patient Condition: Stable Consults Dr Olivera/Micheline, surgery Procedures s/p total proctocolectomy with coloanal anastomosis.Mobilization of splenic flexure. Diverting ileostomy Hospital Course This is a 53-year-old male of no past medical history who was diagnosed with rectal cancer followed by Dr. Olivera as an outpatient. The patient on regular colonoscopy was found to have a rectal cancer which was 4 to 5 cm in diameter. The patient was followed by Dr. Verduzco, Dr. Olivera and oncologist as an outpatient. Pt underwent neoadjuvant chemotherapy . Today pt is s/p total proctocolectomy with coloanal anastomosis.Mobilization of splenic flexure. Diverting ileostomy by Dr Olivera PAST MEDICAL HISTORY: None 1. S/p total proctocolectomy with coloanal anastomosis and mobilization of splenic flexure. Diverting ileostomy. 2 Macrocytic hyperchromic anemia 3 hx smoking 4 hx of rectal cancer consistent with adenocarcinoma, moderately- differentiated, ulcerated 5. Overweight 6. Stable 10 mm well-defined focus of sclerosis in the right hip. This lesion has a nonaggressive appearance and likely reflects a bone island. Spoke to to see a PET scan prior surgery After surgery pt was on pain medication. He was held NPO and followed by dr Tobias, surgery. His ileostomy start draining, KUB is reported: Gas filled, dilated loops of small bowel in the mid and upper abdomen, compatible with small bowel ileus or obstruction. Pt was ambulated and ask to take less medication. He has a wound care and ileostomy care. Pt started on clear liquid and was advanced to regular. He tolerated diet well. Pt reported no pain, his colostomy pink and moist. is helping with changing of ileostomy bag. Pt is ambulating. Was adv ised not to start smoking. Home Meds No Active Prescriptions or Reported Meds Follow-up Plan Dr olivera office Primary Care Provider Not On Staff Doctor Time spent on discharge: < 30 minutes MICHELLE ZHAO Nov 10, 2018 13:34
--- NOTE | 2018-11-10 13:36 | PDOCDIS ---
Discharge Instructions DIAGNOSIS Discharge Diagnosis S/p total proctocolectomy CONDITION [id number] Patient Condition: [id number] Stable HOME CARE INSTRUCTIONS: [id number] Diet Instructions: [id number] Regular ACTIVITY: [id number] Activity Restrictions: [id number] Slowly Increase Activity Rest between Activity Avoid heavy lifting Avoid Heavy Housework [id number] Bathing Restrictions: [id number] Shower FOLLOW UP/APPOINTMENTS Follow-up Plan Dr olivera office 1 week SCHOOL/WORK RELEASE May return to School/Work with: With Restrictions MICHELLE ZHAO Nov 10, 2018 13:36
--- NOTE | 2018-11-10 14:05 | PN ---
DATE: 11/10/2018 Postop day #11 status post very low anterior resection of the cancer of the rectum and coloanal anast omosis and placement of diverting end ileostomy for protection of the anastomosis. SUBJECTIVE: Feels good, has tolerated a regular diet. Ileostomy is functioning very well per patien t. No pain, no nausea, no vomiting. OBJECTIVE: VITAL SIGNS: Temperature maximum 98.6, heart rate 72, respirations 19, blood pressure 137/69, satura tion 98% on room air. LABORATORY DATA: There are no new labs available. PHYSICAL EXAMINATION: HEART: Regular. LUNGS: Clear. ABDOMEN: Soft. The distention that used to be obvious is not obvious anymore. Palpation is not ten shaye. No rigidity. Midline incision is clean. Ileostomy is functioning. The content is greenish, b ut more formed kind of material. EXTREMITIES: Lower extremity: No pitting edema, no calf tenderness. ASSESSMENT AND PLAN: The patient is a 53-year-old who had rectal cancer resection with coloanal anas tomosis and diverting end ileostomy. Postop was complicated to some extent in the sense that patient had what appeared to be general severe postop ileus or obstruction at the very distal part of the sm all intestine with air-fluid levels. Multiple x-rays showed this phenomenon and eventually after I d id a digital examination of the ileostomy and some manual possibly dilatation was performed at the le grady of the fascia, then the ileostomy started functioning well and he passed a lot of gas and now he does not complain and today's x-ray revealed that the gaseous distention of the small bowel has decre ased to a greater extent. PLAN: The patient can be discharged home today. No antibiotic is needed. No medication. Patient t o call Dr. Sánchez' office and make appointment for next Tuesday followup. All of the plan and followup instructions were given to the patient and patient's . Dictated By: LANCE MUNOZ MD PS/NTS Conf#: [id number] DID#: [id number] CC: NASIR SÁNCHEZ MD;*EndCC*
[2018-11-10 14:49] VITALS: BP 119/69; PULSE 74; RESP 18
== END 2018-11-10 14:40 | disposition home health service (06) | DRG 331 ==
LOC: REC 10-30 06:25 → MS1 10-30 12:58
PROVIDERS: ADMIT Surgery Surgical Oncology; ATTEND Internal Medicine
PROC: 0D1B0Z4 Bypass Ileum to Cutaneous, Open Approach (ICD-10-PCS; 2018-10-30)
PROC: 0DTN0ZZ Resection of Sigmoid Colon, Open Approach (ICD-10-PCS; 2018-10-30)
PROC: 0DTP0ZZ Resection of Rectum, Open Approach (ICD-10-PCS; principal; 2018-10-30 07:30)
DX: C20 Malignant neoplasm of rectum (principal); Z72.0 Tobacco use; R11.2 Nausea with vomiting, unspecified; R10.13 Epigastric pain; G89.18 Other acute postprocedural pain; D53.9 Nutritional anemia, unspecified; R14.0 Abdominal distension (gaseous)
CPT/HCPCS: 71046; 74018; 74019; 74250; 80048; 80053; 81001; 83735; 84100; 85025; 87086; 88307; 88331; 97161; C9113; J0690; J1100; J1170; J2060; J2175; J2250; J2274; J2405; J2543; J2710; J2765; J2795; J3010; J3475; J3480; J7030; J7050; P9045; Q9967

== ENCOUNTER 2018-12-12 08:08 | Day surgery (SDC) | payer OTHER ==
[2018-12-11 17:59] VITALS: BMI 26.7
[~2018-12-12] VITALS: Ht 160 cm; Wt 67.4 kg
[2018-12-12 08:53] VITALS: Ht 160 cm; Wt 67.4 kg
[2018-12-12 09:14] VITALS: BP 99/70; PULSE 78; RESP 16
[2018-12-12] MEDS ORDERED: SOD CHLORIDE 0.9% 1,000 ML IV SCH (09:38)
[2018-12-12] MEDS ORDERED: HEPARIN 1000 UNITS/ML 10 ML INJ ONE (09:49)
[2018-12-12] MEDS ORDERED: LIDOCAINE 1%/EPI (1:100,000) (MDV) 20 ML ONE ×2 (09:49→10:48)
[2018-12-12] MEDS ORDERED: CEFAZOLIN 1 GM/50 ML (PMX) 50 ML IVPB ONE ×2 (10:00→10:26)
[2018-12-12] MEDS ORDERED: POLYMYXIN/BACITRACIN 1L IRRIG IRR ONE (10:00)
[2018-12-12] MEDS ORDERED: FENTAnyl 50 MCG/ML VIAL ONE (10:26)
--- NOTE | 2018-12-12 11:34 | HPN ---
Date/Time of Note Date/Time of Note DATE: 12/12/18 TIME: 11:34 Interval H&P Admission Note Pt. seen H&P reviewed: No system changes TOM PARRY MD December 12, 2018 11:34
[2018-12-12 12:59] VITALS: BP 100/63; PULSE 78; RESP 16
== END 2018-12-12 12:51 | disposition home or self-care (01) ==
LOC: SDS 08:08
PROVIDERS: ATTEND Internal Medicine Hematology & Oncology
DX: C20 Malignant neoplasm of rectum (principal)
CPT/HCPCS: 36561; 76942; J0690; J1644; J3010; Z7610; C1788